=== PATIENT | male | born 1950 | race Caucasian/White ===

== ENCOUNTER 2020-04-09 17:53 | Inpatient (IN) | payer OTHER ==
[~2020-04-09] VITALS: Ht 167.6 cm; Wt 77.4 kg
[~2020-04-09 17:53] MED LIST: DEXT15ER; FAMO20
[2020-04-09 18:23] LABS: BASOPHILS PERCENT AUTO 2 % (0-2); EOSINOPHILS PERCENT AUTO 2 % (0-6); Hematocrit 27.6 % (37.0-53.0); Hemoglobin 8.6 g/dL (13.5-17.5); IMMATURE GRAN ABSOLUTE AUTO 0.03 K/mm3 (0.00-0.10); IMMATURE GRAN PERCENT AUTO 1 % (0-1); LYMPHOCYTES ABSOLUTE AUTO 1.53 K/mm3 (0.84-5.20); LYMPHOCYTES PERCENT AUTO 31 % (21-46); MONOCYTES ABSOLUTE AUTO 0.23 K/mm3 (0.16-1.47); MONOCYTES PERCENT AUTO 5 % (4-13); Mean Corpuscular HGB 34.5 pg (26.0-34.0); Mean Corpuscular HGB Conc 31.2 g/dL (31.5-36.5); Mean Corpuscular Volume 111 fL (80-100); Mean Platelet Volume 11.1 fL (9.1-12.4); NEUTROPHILS ABSOLUTE AUTO 2.91 K/mm3 (1.96-9.15); NEUTROPHILS PERCENT AUTO 60 % (41-73); NRBC ABSOLUTE 0.02 K/mm3 (0.00-0.02); NRBC Auto 0.4 /100 WBC (0.0-0.2); Platelet Count 215 K/mm3 (150-400); RDW Coefficient Variation 19.5 % (11.7-14.2); RDW Standard Deviation 79.2 fL (35.1-46.3); Red Blood Cell Count 2.49 M/mm3 (4.30-5.90)
[2020-04-09 18:41] LABS: Alanine Aminotransfer (ALT/SGP 19 U/L (12-78); Albumin, Blood 3.3 g/dL (3.4-5.0); Albumin/Globulin Ratio 0.8 (0.8-1.8); Alk Phos 72 U/L (50-136); Anion Gap 8 mmol/L (6-16); Aspartate Aminotrans (AST/SGOT 19 U/L (12-37); Bilirubin, Total 0.7 mg/dL (0.1-1.0); Blood Urea Nitrogen 13 mg/dL (8-24); Bun/Creatinine Ratio 12.9 (12.0-20.0); CO2, Blood 24 mmol/L (21-32); Calcium, Blood 8.7 mg/dL (8.5-10.1); Chloride, Blood 104 mmol/L (98-108); Creatinine, Blood 1.01 mg/dL (0.60-1.20); Globulin, Blood 4.1 g/dL (2.2-4.0); Glomerular Filtration Rate >60 (60-); Glucose, Blood 130 mg/dL (70-99); Potassium, Blood 3.9 mmol/L (3.5-5.5); Sodium, Blood 136 mmol/L (136-145); Total Protein, Blood 7.4 g/dL (6.4-8.2); Troponin I <0.015 ng/mL (0.000-0.040)
[2020-04-09] MEDS ORDERED: NITROGLYCERIN0.4 M3 SL (19:34)
[2020-04-09] MEDS ORDERED: PSEUDOEPHEDRINE30 M3 PO (19:36)
[2020-04-09] MEDS ORDERED: DEPO-TESTO200 MG/12 IM (19:36)
[2020-04-09] MEDS ORDERED: ROSUVASTATIN CA20 MG PO (19:36)
[2020-04-09] MEDS ORDERED: ESCI10 PO (19:36)
[2020-04-09] MEDS ORDERED: ISOSORBIDE MONO60 MG PO (19:37)
[2020-04-09] MEDS ORDERED: METOPROLOL TART25 MG PO (19:38)
[2020-04-09] MEDS ORDERED: OMEP20ER PO (20:13)
[2020-04-09] MEDS ORDERED: ASPIR 8181 M1 PO (20:13)
[2020-04-09 22:27] LABS: Percent Saturation 71.4 % (20.0-50.0)
--- NOTE | 2020-04-10 00:02 | NUR ---
RECIEVED REPORT FROM NOA FROM ED. PT TO TRANSFER IN ROOM 14.
--- NOTE | 2020-04-10 03:27 | NUR ---
PT REPORTS CHEST PAIN AT 0323 RADIATING TO LEFT SIDE ARM WITH SOME NUMBNESS DENIES TINGLING SENSATION. PT DESCRIBES PAIN "FEELS LIKE SOMETHING'S PUSHING MY CHEST". PAIN LEVEL 5/10. PT DENIES N/T ON FACE, NO NOTED DROOPING FACE. NITRO SIBLINGUAL WAS GIVEN. PT REPORTS RELIEF AFTER APROX 4 MINS. VSS. BP AT 127/78 ON L ARM. O2 SAT AT 97% WITH HEART RATE OF 86. CALLED PRESS WORKER HELPERANDREW, PT ON TELE, SINUS RHYTHM AT 86. NOTIFIED HOT DIE PRESS OPERATORMACY.
--- NOTE | 2020-04-10 04:41 | NUR ---
SHIFT SUMMARY PT A0X4. VSS. TELE ON SINUS RHYTHM AT 80'S. NO ACUTE CHANGES. PT REPORTS CHEST PAIN HAS IMPROVED. CURRENTLY COMFORTABLE SLEEPING IN BED. PT DENIES SOB. URINE OUTPUT OF 200MLS T/O SHIFT. DENIES PROBLEMS VOIDING. CALL LIGHT WITHIN REACH.
--- NOTE | 2020-04-10 05:56 | NUR ---
PT REPORTS CHEST PAIN RADIATING ON LEFT SIDE ARM. AGAIN. 08/28. ADMINISTERED NITRO SUBLINGUAL. HE REPORTS MILD IMPROVEMENT WITH HIS PAIN. VSS. CALLED TWITCHELL OPERATOR, PT ON SINUS RHYTHM AT 87.
--- NOTE | 2020-04-10 11:56 | NUR ---
ALL PATIENTS SCHEDULED MORNING MEDICATIONS ADMINISTERED PER EMAR ON 04/10/20 @ APPROX 0830. THE COMPUTER IN PATIENTS ROOM FROZE AND WOULD NOT ALLOW FOR ME TO DOCUMENT IN EMAR.
[2020-04-10 12:04] LABS: International Normalized Ratio 1.05; Prothrombin Time Results 11.2 Sec (9.7-11.5)
[2020-04-10 12:30] LABS: Influenza A, PCR NEGATIVE (NEGATIVE); Influenza B, PCR NEGATIVE (NEGATIVE); Resp Syncytial Virus, PCR NEGATIVE (NEGATIVE); SARS-Cov-2 (COVID-19) PCR, MMC NEGATIVE (NEGATIVE)
--- NOTE | 2020-04-10 12:53 | NUR ---
ECHOCARDIOGRAM COMPLETE
--- NOTE | 2020-04-10 16:37 | NUR ---
PATIENT IS PLEASANT AND COOPERATIVE WITH STAFF. VITALS STABLE. C/O CHEST PAIN ONCE AT THE START OF THE SHIFT WITH EFFECTIVE RESULTS FROM NITRO. PATIENT STARTED ON HEP DRIP R/T CHEST PAIN AND ELEVATED TROPS. CARDIALOGY CONSULT COMPLETED BY DR CAMARILLO WHO STATES HE PLANS TO ADJUST THE PATIENTS MEDS HOWEVER HAS NO PLANS TO PERFORM ANY PROCEEDURES ON PATIENT AT THIS TIME. PATIENT WITHOUT ANY FURTHER COMPLAINTS OF PAIN OR DISCOMFORT. CALL LIGHT WITHIN REACH.
[2020-04-11 04:47] LABS: Mean Corpuscular HGB 34.9 pg (26.0-34.0); Mean Corpuscular Volume 109 fL (80-100); Mean Platelet Volume 11.7 fL (9.1-12.4); Platelet Count 169 K/mm3 (150-400); RDW Coefficient Variation 19.8 % (11.7-14.2); RDW Standard Deviation 77.9 fL (35.1-46.3); Red Blood Cell Count 2.29 M/mm3 (4.30-5.90); White Blood Cell Count 6.18 K/mm3 (4.00-11.30)
[2020-04-11 05:17] LABS: Phosphorus, Blood 3.5 mg/dL (2.5-4.9); Thyroid Stimulating Hormone 3.71 uIU/mL (0.360-4.800)
--- NOTE | 2020-04-11 05:33 | NUR ---
SHIFT SUMMARY PT ALERT AND ORIENTED X 4. HR STABLE. BP STABLE. OXYGEN SATURATION MAINTAINED ABOVE 92% ON RA. PT ABLE TO TURN SELF IN BED, ASSISTED NEEDED. NO CP OR PRESSURE REPORTED T/O SHIFT. WILL CONTINUE TO MONITOR UNTIL REPORT GIVEN TO DAYSHIFT RN.
[2020-04-11] MEDS ORDERED: METO50ER PO (09:40)
[2020-04-11] MEDS ORDERED: ATOR80 PO (09:41)
[2020-04-11] MEDS ORDERED: CLOP75 PO (09:42)
[2020-04-11] MEDS ORDERED: LOSA25 PO (09:43)
--- NOTE | 2020-04-11 10:45 | NUR ---
TELE BOX, IV AND CONTINUOUS BIOX REMOVED FROM PATIENT IN PREP FOR DISCHARGE HOME. TELE BOX RETURNED TO TELE MONITOR.
--- NOTE | 2020-04-11 11:24 | NUR ---
DISCHARGE INSTRUCTIONS GIVEN TO PATIENT AND ALONG WITH EDUCATIONAL MATERIAL. ALL QUESTIONS ANSWERED. PRESCRIPTIONS FAXED TO [facility] PER PATIENT REQUEST. PATIENT DISCHARGED HOME AT 1125 WITH . CLINICAL PHLEBOTOMIST ESCORTED PATIENT OUT TO VEHICLE IN WHEELCHAIR.
== END 2020-04-11 11:27 | disposition home or self-care (01) | DRG 303 ==
LOC: ER 17:53 → PCU 17:54 → ERHOLD 17:54 → PCU 04-10 00:10
PROVIDERS: Emergency Medicine; Family Medicine; ADMIT Internal Medicine
DX: I25.10 Atherosclerotic heart disease of native coronary artery without angina pectoris (principal); Q74.3 Arthrogryposis multiplex congenita; I25.5 Ischemic cardiomyopathy; D64.9 Anemia, unspecified; E78.5 Hyperlipidemia, unspecified; I11.0 Hypertensive heart disease with heart failure; I50.9 Heart failure, unspecified
CPT/HCPCS: 0241U; 36415; 71045; 80053; 82728; 83540; 83550; 83690; 83735; 84100; 84443; 84484; 85025; 85027; 85610; 85730; 93005; 93010; 93306; 96372; 99285-25; A9270; G0008; G0378; J1644; J1650; Q2038

== ENCOUNTER 2020-04-19 18:33 | Inpatient (IN) | payer OTHER, MEDICARE ==
[~2020-04-19] VITALS: Ht 167.6 cm; Wt 78.5 kg
[~2020-04-19 18:33] MED LIST changes: +ASPIR 8181 M1 PO; +ATOR80 PO; +CLOP75 PO; +DEPO-TESTO200 MG/12 IM; +ESCI10 PO; +ISOSORBIDE MONO60 MG PO; +LOSA25 PO; +METO50ER PO; +METOPROLOL TART25 MG PO; +NITROGLYCERIN0.4 M3 SL; +OMEP20ER PO; +PSEUDOEPHEDRINE30 M3 PO; +ROSUVASTATIN CA20 MG PO
[2020-04-19 19:17] LABS: Hematocrit 27.8 % (37.0-53.0); Hemoglobin 8.8 g/dL (13.5-17.5); Mean Corpuscular HGB 35.8 pg (26.0-34.0); Mean Corpuscular HGB Conc 31.7 g/dL (31.5-36.5); Mean Corpuscular Volume 113 fL (80-100); Platelet Count 252 K/mm3 (150-400); RDW Coefficient Variation 20.2 % (11.7-14.2); RDW Standard Deviation 83.4 fL (35.1-46.3); Red Blood Cell Count 2.46 M/mm3 (4.30-5.90); White Blood Cell Count 5.67 K/mm3 (4.00-11.30)
[2020-04-19 19:42] LABS: Alanine Aminotransfer (ALT/SGP 18 U/L (12-78); Albumin, Blood 3.2 g/dL (3.4-5.0); Albumin/Globulin Ratio 0.8 (0.8-1.8); Alk Phos 66 U/L (50-136); Anion Gap 10 mmol/L (6-16); Aspartate Aminotrans (AST/SGOT 19 U/L (12-37); Bilirubin, Total 0.5 mg/dL (0.1-1.0); Blood Urea Nitrogen 16 mg/dL (8-24); CHOL/HDL RATIO 2.8; CO2, Blood 21 mmol/L (21-32); Calcium, Blood 8.7 mg/dL (8.5-10.1); Chloride, Blood 103 mmol/L (98-108); Cholesterol 80 mg/dL (50-200); Glucose, Blood 99 mg/dL (70-99); HDL Cholesterol 29 mg/dL (>39); Low Density Lipoprotein Chol 28 mg/dL (0-110); Magnesium, Blood 1.9 mg/dL (1.6-2.4); Potassium, Blood 3.8 mmol/L (3.5-5.5); Sodium, Blood 134 mmol/L (136-145); Total Protein, Blood 7.2 g/dL (6.4-8.2); Triglycerides 113 mg/dL (30-160); Troponin I <0.015 ng/mL (0.000-0.040); Very Low Density Lipoprot Chol 22 mg/dL (6-32)
[2020-04-19 19:47] LABS: Bun/Creatinine Ratio 14.2 (12.0-20.0); Creatinine, Blood 1.13 mg/dL (0.60-1.20); Ethanol (Alcohol), Blood, Med 219 mg/dL; Glomerular Filtration Rate >60 (60-)
[2020-04-19 19:50] LABS: International Normalized Ratio 1.02; Prothrombin Time Results 10.9 Sec (9.7-11.5)
[2020-04-19 20:05] LABS: Source, Urine Clean Catch
[2020-04-19 20:13] LABS: Appearance, Urine Hazy (Clear); Bilirubin, Urine Neg (Neg); Blood, Urine 3+ (Neg); Color, Urine Yellow (P-Yellow); Glucose Qualitative, Urine Neg (Neg); Ketones, Urine Neg (Neg); Leukocyte Esterase, Urine 3+ (Neg); Nitrite, Urine Neg (Neg); Protein, Urine 2+ (Neg); Urobilinogen, Urine NORM (Normal)
[2020-04-19 20:20] LABS: Bacteria Many /hpf; Squamous Epithelial Cells Few /hpf (Few); White Blood Cells, Urine 50-100 /hpf (0-5)
[2020-04-19 20:23] LABS: U Amphetamine Screen Not Detected; U Barbituate Screen Not Detected; U Benzodiazapine Screen Not Detected; U Buprenorphine Screen Not Detected; U Cannabinoids Screen DETECTED; U Cocaine Screen Not Detected; U Methadone Screen Not Detected; U Methamphetamine Screen Not Detected; U Opiates Screen Not Detected; U Oxycodone Screen Not Detected; U Phencyclidine Screen Not Detected; U Propoxyphene Screen Not Detected
[2020-04-19 23:15] LABS: Influenza A, PCR NEGATIVE (NEGATIVE); Influenza B, PCR NEGATIVE (NEGATIVE); Resp Syncytial Virus, PCR NEGATIVE (NEGATIVE); SARS-Cov-2 (COVID-19) PCR, MMC NEGATIVE (NEGATIVE)
[2020-04-20 02:12] LABS: BASOPHILS ABSOLUTE AUTO 0.11 K/mm3 (0.00-0.23); BASOPHILS PERCENT AUTO 3 % (0-2); EOSINOPHILS ABSOLUTE AUTO 0.06 K/mm3 (0.00-0.68); EOSINOPHILS PERCENT AUTO 1 % (0-6); Hematocrit 24.3 % (37.0-53.0); Hemoglobin 7.8 g/dL (13.5-17.5); IMMATURE GRAN ABSOLUTE AUTO 0.01 K/mm3 (0.00-0.10); IMMATURE GRAN PERCENT AUTO 0 % (0-1); LYMPHOCYTES ABSOLUTE AUTO 1.82 K/mm3 (0.84-5.20); LYMPHOCYTES PERCENT AUTO 42 % (21-46); MONOCYTES ABSOLUTE AUTO 0.27 K/mm3 (0.16-1.47); MONOCYTES PERCENT AUTO 6 % (4-13); Mean Corpuscular HGB 35.3 pg (26.0-34.0); Mean Corpuscular HGB Conc 32.1 g/dL (31.5-36.5); Mean Corpuscular Volume 110 fL (80-100); Mean Platelet Volume 11.7 fL (9.1-12.4); NEUTROPHILS ABSOLUTE AUTO 2.08 K/mm3 (1.96-9.15); NEUTROPHILS PERCENT AUTO 48 % (41-73); Platelet Count 204 K/mm3 (150-400); RDW Coefficient Variation 19.8 % (11.7-14.2); RDW Standard Deviation 78.2 fL (35.1-46.3); Red Blood Cell Count 2.21 M/mm3 (4.30-5.90); White Blood Cell Count 4.35 K/mm3 (4.00-11.30)
[2020-04-20 02:31] LABS: Anion Gap 6 mmol/L (6-16); Blood Urea Nitrogen 12 mg/dL (8-24); Bun/Creatinine Ratio 12.6 (12.0-20.0); CO2, Blood 26 mmol/L (21-32); Calcium, Blood 8.3 mg/dL (8.5-10.1); Chloride, Blood 104 mmol/L (98-108); Creatinine, Blood 0.95 mg/dL (0.60-1.20); Glomerular Filtration Rate >60 (60-); Glucose, Blood 95 mg/dL (70-99); Potassium, Blood 4.3 mmol/L (3.5-5.5); Sodium, Blood 136 mmol/L (136-145); Troponin I 0.277 ng/mL (0.000-0.040)
--- NOTE | 2020-04-20 06:09 | NUR ---
SHIFT SUMMARY PATIENT SLEPT WELL THROUGH NIGHT. NO COMPLAINTS OF PAIN. DID NOT SOME DESTURATION JUST RECENTLY WHILE DEEPLY ASLEEP, DOWN TO LOW OF 55% THEN BACK UP WITHIN LESS THAN 20 SECONDS, NO LONGER NOTICING AFTER WAKING PATIENT UP FOR EKG. PRINT-OUT OF EKG PLACED IN CHART. ASSESSMENT IS CHARTED. VSS. WILL CONTINUE TO MONITOR.
--- NOTE | 2020-04-20 18:11 | NUR ---
SHIFT SUMMARY PT ATE BREAKFAST AND DR. LU CAME IN AND SAID THERE WAS A NPO ORDER IN BECAUSE HE WAS HAVING A CATH TODAY. NPO ORDER WEAS NOT IN SO PT ATE. PT TO HAVE CATH AT 2PM TODAY. PT WAS TAKEN TO HOME COMFORT ADVISOR AND BROUGHT BACK DUE TO EMERGENCY STEMI. 2 MG ATIVAN GIVEN FOR CIWA AT 1345 OF 16. THINK IT WAS NERVES AND NOT W/D. PT CAME BACK SLEEPY FROM THE ATIVAN AND VALUUM THAT WAS GIVEN. STILL WAITING FOR HOME COMFORT ADVISOR TO TAKE THE PT BACK FOR PROCEDURE. WAS HERE, BUT WENT HOME AT 6 PM.
--- NOTE | 2020-04-20 19:25 | NUR ---
ASSUMED CARE RECEIVED REPORT FROM PADMINI ESPINOSA; PT IS IN DOUGH MAKER CURRENTLY; REVIEWED CHART W/ JESÚS
--- NOTE | 2020-04-20 20:08 | NUR ---
PT BACK TO ROOM FROM DIE REPAIRER TRIMMER DIES; NO INTERVENTION AT THIS TIME DUE TO SMALL VESSELS; DISCUSSION W/ PT AND SPOUSE TO TAKE PLACE TOMORROW; FEMORAL ACCESS TO R SIDE, SMALL AMOUNT OF BLOOD NOTED; PT A&O X 4; VSS; O2 SATS >93 ON RA ON R SIDE GREAT TOE; CALL LIGHT IN REACH; BED IN LOWEST POSITION.
--- NOTE | 2020-04-20 21:00 | NUR ---
UPDATE TO SEE PT; STATED HE WOULD NOT RESTART HEP GTT; WHEN SPOUSE COMES AT 1400 TO CALL , HE WILL COME MEET W/ PT AND SPOUSE TO GO OVER COURSE OF [place]
--- NOTE | 2020-04-21 05:19 | NUR ---
SHIFT SUMMARY PT A&O X 2-3; CONFUSED AT TIMES; REORIENTED NEEDED; PT REMEMBERED QUICKLY WHEN DETAILS PROVIDED; DENIES CHEST PAIN; VSS; O2 SATS >93 ON RA WHEN FULLY AWAKE, HOWEVER PT DESATS WHEN SLEEPING SOUNDLY AND SNORING; PLACED ON 2L NC TO MAINTAIN SATS; PT STATED THAT TELLS HIM HE STOPS BREATHING DURING THE NIGHT AT HOME; PT STATES HE DOES NOT USE CPAP OR O2 AT BASELINE; R FEMORAL SITE, W/ SCANT DRIED BLOOD; ANGIO SEAL IN PLACE; PT USES URINAL IN BED; CALL LIGHT IN REACH; BED IN LOWEST POSITION; WILL CONTINUE TO MONITOR CLOSELY UNTIL HAND OFF TO DAY SHIFT RN.
--- NOTE | 2020-04-21 08:00 | NUR ---
INITIAL ASSESSMENT PATIENT DROWSY THIS AM. PATIENT ABLE TO ANSWER QUESTIONS BUT HAS A HARD TIME KEEPING EYES OPEN AFTER EVERY QUESTION. PATIENT IS ALERT AND ORIENTED X 4. AFEBRILE. CIWA SCORE OF 2. PATIENT WEAK WITH LIMITED ROM DUE TO CONTRACTIONS FROM DEGENERATIVE MUSCLE DISEASE. PATIENT DENIES PAIN AT THIS TIME. PATIENT SATTING 90% AND GREATER ON RA. PATIENT IN SR, HR 60S TO 80S. SBP LOW 100S TO 120S. LAST BM DOCUMENTED ON 04/18. WNL. R FEM AUTO PAINTER SITE WITH ANGIOSEAL AND TEGADERM. SITE C/D/I; NO BLEEDING, BRUISING, HEMATOMA NOTED. IVS FLUSHED AND SALINE LOCKED. BED LOW, CALL LIGHT IN REACH. WILL CONTINUE TO MONITOR PATIENT FREQUENTLY THROUGHOUT SHIFT.
--- NOTE | 2020-04-21 12:37 | NUR ---
PATIENT HAS TEMP OF 99.0 DEGREES FAHRENHEIT. HR 60S T0 70S. SBP 90S TO LOW 100S. NO COMPLAINTS AT THIS TIME. NO OTHER ACUTE CHANGES TO NOTE ON. WILL CONTINUE TO MONITOR.
--- NOTE | 2020-04-21 15:00 | NUR ---
DR. ROSENBERG UPDATED ON PATIENT CONDITION. DOCTOR INFORMED THAT PATIENT MAY HAVE UTI. INFORMED THAT HEMOGLOBIN 7.8 AND IS DECREASED FROM YESTERDAY. INFORMED THAT PATIENT HAS NOT HAD A BM SINCE THE March. DR. ROSENBERG AND DR. LU SPEAKING ABOUT PATIENT. NO ORDERS RECEIVED AT THIS TIME.
[2020-04-21 15:53] LABS: Hematocrit 26.2 % (37.0-53.0); Hemoglobin 8.4 g/dL (13.5-17.5)
--- NOTE | 2020-04-21 19:15 | NUR ---
SHIFT SUMMARY PATIENT REMAINED ALERT AND ORIENTED X 4. PATIENT DROWSY THIS AM BUT SOON BECAME MORE AWAKE AND ALERT. CIWA MAX OF 2. TMAX OF 99.1 DEGREES FAHRENHEIT. PATIENT HAD NO COMPLAINTS OF PAIN THIS SHIFT. PATIENT REMAINED SATTING 90% AND GREATER ON RA. PATIENT REMAINED IN SR, HR 60S TO 80S. SBP 80S TO 120S. NO BM THIS SHIFT. WNL. NO CHANGE IN SKIN. R FEM SITE REMAINED WNL. PATIENT BEING TRANSFERRED TO [place] FOR CABG. REPORT GIVEN TO ASSUMING NURSE IN [place]. MOST PATIENT BELONGINGS SENT HOME WITH PATIENT . PATIENT'S CALLED AND UPDATED ON ROOM PATIENT IS GOING TO.
== END 2020-04-21 19:40 | disposition short-term general hospital (02) | DRG 281 ==
LOC: ER 18:33 → ICUE 18:34 → ERHOLD 18:34 → ICUE 21:20
PROVIDERS: Emergency Medicine; Internal Medicine; Nurse Practitioner Acute Care; ADMIT Internal Medicine
PROC: B2111ZZ Fluoroscopy of Multiple Coronary Arteries using Low Osmolar Contrast (ICD-10-PCS; principal; 2020-04-20)
PROC: B2151ZZ Fluoroscopy of Left Heart using Low Osmolar Contrast (ICD-10-PCS; 2020-04-20)
PROC: 4A023N7 Measurement of Cardiac Sampling and Pressure, Left Heart, Percutaneous Approach (ICD-10-PCS; 2020-04-20)
DX: I21.4 Non-ST elevation (NSTEMI) myocardial infarction (principal); Q74.3 Arthrogryposis multiplex congenita; I25.110 Atherosclerotic heart disease of native coronary artery with unstable angina pectoris; I10 Essential (primary) hypertension; Z79.82 Long term (current) use of aspirin; Z79.01 Long term (current) use of anticoagulants; F10.10 Alcohol abuse, uncomplicated; I95.9 Hypotension, unspecified; D53.9 Nutritional anemia, unspecified; Y90.0 Blood alcohol level of less than 20 mg/100 ml
CPT/HCPCS: 0241U; 36415; 71045; 76937; 80048; 80053; 80061; 81001; 82607; 82746; 83735; 83880; 84100; 84484; 85014; 85018; 85025; 85027; 85610; 85730; 86850; 86900; 86901; 87077; 87086; 87186; 93005; 93010; 93308; 93321; 93458; 96365; 96374; 96375; 96376; 99152; 99285-25; A9270; C1760; C1769; C1894; G0378; G0480; J1644; J2060; J2250; J3010; J3475; J7030; J7050; Q9967

== ENCOUNTER 2020-11-10 19:29 | Inpatient (IN) | payer OTHER ==
[~2020-11-10] VITALS: Ht 167.6 cm; Wt 75.0 kg
[2020-11-10 20:14] LABS: BASOPHILS ABSOLUTE AUTO 0.02 K/mm3 (0.00-0.23); BASOPHILS PERCENT AUTO 0 % (0-2); EOSINOPHILS ABSOLUTE AUTO 0.06 K/mm3 (0.00-0.68); EOSINOPHILS PERCENT AUTO 1 % (0-6); IMMATURE GRAN ABSOLUTE AUTO 0.14 K/mm3 (0.00-0.10); IMMATURE GRAN PERCENT AUTO 1 % (0-1); LYMPHOCYTES ABSOLUTE AUTO 0.85 K/mm3 (0.84-5.20); LYMPHOCYTES PERCENT AUTO 8 % (21-46); MONOCYTES ABSOLUTE AUTO 1.02 K/mm3 (0.16-1.47); MONOCYTES PERCENT AUTO 10 % (4-13); Mean Corpuscular HGB 40.9 pg (26.0-34.0); Mean Corpuscular HGB Conc 29.5 g/dL (31.5-36.5); Mean Corpuscular Volume 139 fL (80-100); NEUTROPHILS ABSOLUTE AUTO 8.46 K/mm3 (1.96-9.15); NEUTROPHILS PERCENT AUTO 80 % (41-73); NRBC ABSOLUTE 0.09 K/mm3 (0.00-0.02); NRBC Auto 0.9 /100 WBC (0.0-0.2); RDW Coefficient Variation 23.8 % (11.7-14.2); Red Blood Cell Count 0.88 M/mm3 (4.30-5.90); White Blood Cell Count 10.55 K/mm3 (4.00-11.30)
[2020-11-10 20:17] LABS: Mean Platelet Volume 13.7 fL (9.1-12.4); Platelet Count 251 K/mm3 (150-400)
[2020-11-10 20:18] LABS: Hematocrit 12.2 % (37.0-53.0); Hemoglobin 3.6 g/dL (13.5-17.5)
[2020-11-10] MEDS ORDERED: ROSUVASTATIN CA20 MG PO (20:29)
[2020-11-10] MEDS ORDERED: METOPROLOL TART25 MG PO (20:29)
[2020-11-10] MEDS ORDERED: TRAZ50 PO (20:29)
[2020-11-10 20:33] LABS: Alanine Aminotransfer (ALT/SGP 910 U/L (12-78); Albumin, Blood 2.8 g/dL (3.4-5.0); Albumin/Globulin Ratio 0.6 (0.8-1.8); Alk Phos 183 U/L (50-136); Anion Gap 19 mmol/L (6-16); Aspartate Aminotrans (AST/SGOT 1354 U/L (12-37); Bilirubin, Total 4.3 mg/dL (0.1-1.0); Blood Urea Nitrogen 41 mg/dL (8-24); Bun/Creatinine Ratio 29.3 (12.0-20.0); CO2, Blood 13 mmol/L (21-32); Calcium, Blood 8.4 mg/dL (8.5-10.1); Chloride, Blood 102 mmol/L (98-108); Globulin, Blood 4.4 g/dL (2.2-4.0); Glomerular Filtration Rate 50 (60-); Glucose, Blood 91 mg/dL (70-99); Sodium, Blood 134 mmol/L (136-145); Total Protein, Blood 7.2 g/dL (6.4-8.2); Troponin I 0.028 ng/mL (0.000-0.040)
[2020-11-10 20:45] LABS: International Normalized Ratio 1.9; Prothrombin Time Results 19.8 Sec (9.7-11.5)
[2020-11-10] MEDS ORDERED: OMEP20ER PO (21:38)
[2020-11-10] MEDS ORDERED: PANTOPRAZOLE SO40 M2 PO (21:39)
[2020-11-10 21:45] LABS: Percent Saturation 77.9 % (20.0-50.0)
--- NOTE | 2020-11-11 | NUR ---
RECEIVED HAND OFF FROM Alban DAVIDSON RN USING SBAR. TRANSPORTED TO ROOM PCU13 VIA STRETCHER. TRANSFERED TO BED USING FULL STAFF ASSISTANCE, TOLERATED WELL. AAO X3, SOME MOVEMENT TO ALL EXREMETIES WITH STIFFNESS AND CONTRACTURES NOTED. 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 PT STATES THAT LESS THAN 6 MONTHS AGO HE WAS SELF CARE AND IS CONCERNED ABOUT BECOMING A BURDEN TO HIS SPOUSE. UA AND COVID SWAB TO BE DONE. RESPIRTATIONS EVEN AND UNLABORED ON ROOM IAR. LUNG SOUNDS CLEAR BILATERALLY. ABDOMEN FIRM WITH ACTIVE BOWEL TONES NOTED IN ALL QUADS. RIGHT AC PIV IS PATENT, INFUSING UNIT 1 OF 3 PRBC'S ORDERED. CONTINENT OF BOWEL AND BLADDER, WEARS OWN UNDERWEAR. DENIES NEEDS FOR ATTENDS AT THIS TIME. ADMISSION ASSESSEMENT IN PROGRESS. SAFETY MEASURES IN PLACE. WILL CONTINUE TO MONITOR AND ADDRESS NEEDS THEY OCCURE.
[2020-11-11 01:28] LABS: Hematocrit 14.9 % (37.0-53.0); Hemoglobin 4.6 g/dL (13.5-17.5)
[2020-11-11 01:29] LABS: Source, Urine Clean Catch
[2020-11-11 01:35] LABS: Blood, Urine 5+ (Neg); Glucose Qualitative, Urine Neg (Neg); Ketones, Urine 2+ (Neg); Leukocyte Esterase, Urine 3+ (Neg); Nitrite, Urine Neg (Neg); Protein, Urine 3+ (Neg); Urobilinogen, Urine 3+ (Normal)
[2020-11-11 01:48] LABS: Appearance, Urine Hazy (Clear); Bilirubin, Urine 1+ (Neg); Color, Urine Yellow (P-Yellow)
[2020-11-11 01:50] LABS: Bacteria Many /hpf; Red Blood Cells, Urine Rare /hpf (0-2); Squamous Epithelial Cells Rare /hpf (Few); White Blood Cells, Urine TNTC /hpf (0-5)
[2020-11-11 01:51] LABS: SARS-Cov-2 (COVID-19) PCR, MMC NEGATIVE (NEGATIVE)
--- NOTE | 2020-11-11 03:00 | NUR ---
STATED THAT HE HAS BEEN HAVING ISSUES WITH SWALLOWING PILLS AND FOOD. SWALLOW EVAL MAY BE NEEDED. CURRENTY ON CLEAR LIQUID DIET. WILL CONTINUE TO MONITOR AND ADDRESS CHANGES THEY OCCUR.
--- NOTE | 2020-11-11 03:16 | NUR ---
UNIT 2 OF 3 PRBC'S STARTED. VS PER FLOW SHEET. TOLERATED FIRST 15 MIN WITHOUT ISSUES OR S/S ADVERSE REACTIONS. FIRST UNIT STARTED IN ER AND CHARTED ON PAPER FLOW SHEET IN CHART. WILL CONTINUE TO MONITOR AND ADDRESS NEEDS THEY ARISE.
--- NOTE | 2020-11-11 06:26 | NUR ---
LYING IN SEMI FOWLERS WITH EYES CLOSED. WILL OCCASIONALLY MOAN AND SHIFT HIS WEIGHT. UNIT 3 OF 3 PRBC'S INFUSING AT THIS TIME, BEDSIDE MONITORING IN PLACE. VITAL SIGNS STABLE AND IMPROVING. HAD C/O CARDONA EARLIER, GIVEN COOL WASHCLOTH TO PLACE ON HIS HEAD. CONTINENT OF BOWEL AND BLADDER, USES URINAL. ADEQUATE OUTPUT SINCE ADMISSION. NEGATIVE RESULTS NOTED FROM COVID SWAB. UA COMPLETED PER MD ORDERS. DENIES PAIN, DISCOMFORT, OR FURTHER NEEDS AT THIS TIME. SAFETY MEASURES IN PLACE. WILL CONTINUE TO MONITOR AND ADDRESS NEEDS THEY ARISE. WILL GIV HAND OFF TO ONCOMING SHIFT USING SBAR DURING BEDSIDE REPORT.
[2020-11-11 09:49] LABS: BASOPHILS ABSOLUTE AUTO 0.05 K/mm3 (0.00-0.23); BASOPHILS PERCENT AUTO 1 % (0-2); EOSINOPHILS ABSOLUTE AUTO 0.03 K/mm3 (0.00-0.68); EOSINOPHILS PERCENT AUTO 0 % (0-6); Hematocrit 21.2 % (37.0-53.0); IMMATURE GRAN ABSOLUTE AUTO 0.12 K/mm3 (0.00-0.10); IMMATURE GRAN PERCENT AUTO 1 % (0-1); LYMPHOCYTES ABSOLUTE AUTO 0.81 K/mm3 (0.84-5.20); LYMPHOCYTES PERCENT AUTO 8 % (21-46); MONOCYTES ABSOLUTE AUTO 0.44 K/mm3 (0.16-1.47); MONOCYTES PERCENT AUTO 5 % (4-13); Mean Corpuscular HGB 33.2 pg (26.0-34.0); Mean Platelet Volume 12.8 fL (9.1-12.4); NEUTROPHILS PERCENT AUTO 85 % (41-73); NRBC ABSOLUTE 0.04 K/mm3 (0.00-0.02); NRBC Auto 0.4 /100 WBC (0.0-0.2); Platelet Count 190 K/mm3 (150-400); RDW Coefficient Variation 26.6 % (11.7-14.2); Red Blood Cell Count 2.11 M/mm3 (4.30-5.90); White Blood Cell Count 9.75 K/mm3 (4.00-11.30)
[2020-11-11 09:55] LABS: Mean Corpuscular Volume 101 fL (80-100)
[2020-11-11 10:04] LABS: International Normalized Ratio 1.79; Prothrombin Time Results 18.7 Sec (9.7-11.5)
[2020-11-11 10:16] LABS: Albumin, Blood 2.7 g/dL (3.4-5.0); Albumin/Globulin Ratio 0.7 (0.8-1.8); Bilirubin, Total 8.9 mg/dL (0.1-1.0); Bun/Creatinine Ratio 30.7 (12.0-20.0); Calcium, Blood 8.2 mg/dL (8.5-10.1); Creatinine, Blood 1.27 mg/dL (0.60-1.20); Globulin, Blood 4.1 g/dL (2.2-4.0); Potassium, Blood 3.5 mmol/L (3.5-5.5); Total Protein, Blood 6.8 g/dL (6.4-8.2)
[2020-11-11 16:44] LABS: Hematocrit 20.7 % (37.0-53.0); Hemoglobin 6.9 g/dL (13.5-17.5)
--- NOTE | 2020-11-11 18:32 | NUR ---
SHIFT SUMMARY PT REMAINS ALERT AND ORIENTED. HAD A DECENT DAY. RECEIVED 3 UNITS OF PRBCS STARTING LAST NIGHT. H/H IMPROVED SOME. ORDERS TO TRANSFUSE AN ADDITIONAL UNIT TONIGHT/NOW. REPEAT LABS ORDERED FOR 2HRS POST INFUSION. PT WAS VERY DEPRESSED AND EMOTIONAL THIS AM. SEEMED DEFEATED AND CALLED HIMSELF NAMES. OFFERED SPIRITUAL CARE VISIT BUT PT DECLINED. PT HAS A 20G TO RIGHT AC, SITE WNL, DRESSING C/D/I (CHANGED TODAY). PT URINATES PER URINAL, CALLS FOR ASSISTANCE, DRIBBLES SOMETIMES AFTER VOIDING. URINE IS DARK YELLOW AND FOULS SMELLING. PT ABD SOFT AND NON TENDER. ONE EPISODE OF NAUSEA/VOMITING THIS AFTERNOON. NO BLOOD NOTED. PT ABLE TO MOVE ARMS BUT NEEDS HELP MANIPULATING THINGS AND EATING/DRINKING. DUE TO MUSCULOSKELETAL ISSUES PT HAS CONTRACTED MUSCLES. NO SIGNIFICANT CHANGES SINCE MORNING ASSESSMENT. PT GOT BEDBATH AND CHANGED INTO GOWN. SPIRITS BETTER THIS EVENING. WOULD REALLY BENEFIT FROM BEING ABLE TO BE AT BEDSIDE AND ASSIST WITH CARE. WILL REPORT TO ONCOMING SHIFT.
--- NOTE | 2020-11-11 22:16 | NUR ---
ONE UNIT PRBC ORDERED AND INFUSING. PATIENT TOLERATING WELL. WCTM
[2020-11-12 01:41] LABS: Hematocrit 23.2 % (37.0-53.0); Hemoglobin 7.9 g/dL (13.5-17.5)
[2020-11-12 01:59] LABS: Alanine Aminotransfer (ALT/SGP 776 U/L (12-78); Albumin, Blood 2.2 g/dL (3.4-5.0); Albumin/Globulin Ratio 0.5 (0.8-1.8); Alk Phos 166 U/L (50-136); Anion Gap 7 mmol/L (6-16); Aspartate Aminotrans (AST/SGOT 850 U/L (12-37); Bilirubin, Total 7.5 mg/dL (0.1-1.0); Blood Urea Nitrogen 34 mg/dL (8-24); Bun/Creatinine Ratio 28.6 (12.0-20.0); CO2, Blood 25 mmol/L (21-32); Calcium, Blood 7.9 mg/dL (8.5-10.1); Chloride, Blood 104 mmol/L (98-108); Creatinine, Blood 1.19 mg/dL (0.60-1.20); Globulin, Blood 4.3 g/dL (2.2-4.0); Glomerular Filtration Rate >60 (60-); Glucose, Blood 118 mg/dL (70-99); Potassium, Blood 3.5 mmol/L (3.5-5.5); Sodium, Blood 136 mmol/L (136-145); Total Protein, Blood 6.5 g/dL (6.4-8.2)
--- NOTE | 2020-11-12 04:30 | NUR ---
SHIFT SUMMARY PATIENT HAD NO ACUTE CHANGES OBSERVED. AXOX 4 AND BEDREST. RECEIVED ONE UNIT PRBC AND TOLERATED WELL. REPORTED CARDONA X ONE AND COLD WET WASH CLOTH PROVIDED. PIV REMAINS INTACT. IV ABX INFUSED. USES URINAL AT BEDSIDE WITH ASSIST. USES CALL LIGHT TO COMMUNICATE NEEDS. LUNG SOUNDS CLEAR BILATERALLY. RESPIRATIONS EVEN AND UNLABORED. ON ROOM AIR. ACTIVE BOWEL TONES X 4 QUADS. DENIES SOB AND N/V. CALL LIGHT IN REACH. BED IN LOWEST POSITION. WILL CONTINUE TO MONITOR UNTIL DAY SHIFT NURSE ASSUMES CARE.
--- NOTE | 2020-11-12 06:24 | NUR ---
PATIENT NAUSEOUS X ONE AND IV ZOFRAN GIVEN PER EMAR. SITTING IN BED. WCTM.
[2020-11-12 06:25] LABS: Hematocrit 22.4 % (37.0-53.0); Hemoglobin 7.6 g/dL (13.5-17.5)
[2020-11-12 10:09] LABS: HBSAG SCREEN Negative (Negative); HEP A AB, IGM Negative (Negative); HEP B CORE AB, IGM Negative (Negative); HEP C VIRUS AB <0.1 (0.0-0.9)
[2020-11-12 12:16] LABS: Hematocrit 23.2 % (37.0-53.0)
--- NOTE | 2020-11-12 12:42 | NUR ---
TRANSFER: PT A/O, VSS. REPORT GIVEN TO MED FLOOR RN AT ABOUT 1200, PT TRANSFERED AT ABOUT 1215 TO ROOM 337. PT MADE AWARE
--- NOTE | 2020-11-12 17:26 | NUR ---
SHIFT SUMMARY PT TRANSFERRED TO [facility] FROM PCU THIS SHIFT. RECEIVED REPORT FROM PADMINI DALE. PT AAOX4, ABLE TO MAKE NEEDS KNOWN, PLEASANT AND COOPERATIVE TO CARE. CALLS APPROPRIATELY FOR ASSISTANCE. PT MEDICATED FOR PAIN PER EMAR. NO C/O CP, SOB, OR N&V. PT REQUIRES 2P MAX ASSIST WITH BED MOBILITY AND DURING TRANSFERS. PT APPEARS CALM AND COMFORTABLE IN BED AT THIS TIME. BED AT LOWEST POSITION. CALL LIGHT WITHIN REACH.
--- NOTE | 2020-11-13 04:34 | NUR ---
END OF SHIFT SUMMARY PATIENT MAINTAINED STABLE VSS THROUGHT THE SHIFT, STILL HAS HEADACHE THAT HE GOT TRAMAL TWICE THIS SHIFT AND WITH GOOD EFFECT. OTHERWISE NO FRESH COMPLAINT
--- NOTE | 2020-11-13 18:57 | NUR ---
Shift Summary, The patient is A/OX4 to person, place, time and event. He is pleasent and cooperative with care. The patient is bed bound, he has decreased ROM in all extremities. The patient did have heel pain and heel protectores were applied and he stated that they helped. The patient did have pain and was given pain medication per EMAR. He is on RA and denies chest pain or SOB. He is able to feed himself. The patient is currently resting in bed watching TV.
--- NOTE | 2020-11-14 04:39 | NUR ---
SHIFT SUMMARY- NO ACUTE EVENTS OVERNIGHT. PT. HAD COMPLAINTS OF HEAD AND LONNY FOOT PAIN. MEDICATED PER EMAR WITH GOOD EFFECT. PT. APPEARED TO HAVE RESTED QUIETLY T/O THE NIGHT, NO APPARENT DISTRESS NOTED. CALL LIGHT WITHIN REACH AND SIDE RAILS UPX2. WILL CONT TO MONITOR.
[2020-11-14 09:00] LABS: Alanine Aminotransfer (ALT/SGP 449 U/L (12-78); Albumin/Globulin Ratio 0.5 (0.8-1.8); Alk Phos 162 U/L (50-136); Anion Gap 4 mmol/L (6-16); Aspartate Aminotrans (AST/SGOT 263 U/L (12-37); Bilirubin, Total 3.6 mg/dL (0.1-1.0); Blood Urea Nitrogen 20 mg/dL (8-24); Bun/Creatinine Ratio 20.4 (12.0-20.0); CO2, Blood 24 mmol/L (21-32); Calcium, Blood 7.6 mg/dL (8.5-10.1); Chloride, Blood 109 mmol/L (98-108); Creatinine, Blood 0.98 mg/dL (0.60-1.20); Globulin, Blood 4.3 g/dL (2.2-4.0); Glomerular Filtration Rate >60 (60-); Glucose, Blood 86 mg/dL (70-99); Potassium, Blood 3.9 mmol/L (3.5-5.5); Sodium, Blood 137 mmol/L (136-145); Total Protein, Blood 6.3 g/dL (6.4-8.2)
[2020-11-14 09:45] LABS: BASOPHILS ABSOLUTE AUTO 0.09 K/mm3 (0.00-0.23); BASOPHILS PERCENT AUTO 2 % (0-2); EOSINOPHILS ABSOLUTE AUTO 0.21 K/mm3 (0.00-0.68); EOSINOPHILS PERCENT AUTO 4 % (0-6); Hematocrit 26.1 % (37.0-53.0); Hemoglobin 8.4 g/dL (13.5-17.5); IMMATURE GRAN ABSOLUTE AUTO 0.06 K/mm3 (0.00-0.10); IMMATURE GRAN PERCENT AUTO 1 % (0-1); LYMPHOCYTES ABSOLUTE AUTO 0.66 K/mm3 (0.84-5.20); LYMPHOCYTES PERCENT AUTO 11 % (21-46); MONOCYTES PERCENT AUTO 5 % (4-13); Mean Corpuscular HGB 32.8 pg (26.0-34.0); Mean Corpuscular HGB Conc 32.2 g/dL (31.5-36.5); Mean Corpuscular Volume 102 fL (80-100); NEUTROPHILS ABSOLUTE AUTO 4.58 K/mm3 (1.96-9.15); NEUTROPHILS PERCENT AUTO 78 % (41-73); Platelet Count 175 K/mm3 (150-400); RDW Standard Deviation 84.3 fL (35.1-46.3); Red Blood Cell Count 2.56 M/mm3 (4.30-5.90)
--- NOTE | 2020-11-14 18:32 | NUR ---
PT IS IN BED,PT ASSESSMENT REMAINS UNCHANGED T/O THE SHIFT, NO ACUTES EVENTS,PT IN RESTING CONFORTABLY IN BED,BED LOCKED,CALL LIGHT IN REACH.WILL CONTINUE TO MONITOR.
--- NOTE | 2020-11-15 06:18 | NUR ---
SHIFT SUMMARY- NO ACUTE EVENTS OVERNIGHT. MEDICATED FOR BLADDER PAIN, REPORTED GOOD RELIEF. PT. SLEPT T/O THE NIGHT, NO APPARENT DISTRESS NOTED, VSS. CALL LIGHT WITHIN REACH AND SIDE RAILS UPX2. WILL CONT TO MONITOR.
[2020-11-15 15:03] LABS: SARS-Cov-2 (COVID-19) PCR, MMC NEGATIVE (NEGATIVE)
[2020-11-15] MEDS ORDERED: FOLI1 PO (15:48)
[2020-11-15] MEDS ORDERED: B-1100 M1 PO (15:49)
--- NOTE | 2020-11-15 20:00 | NUR ---
PT DISCHARGED TO [facility] LEFT IN WHEELCHAIR, GAIT BELT 2 PERSON TO CHAIR. 171. GIVEN MANILA ENVELOPE TO [place] CUTTING TABLE OPERATOR FIRST. CALLED REPORT TO RN AT [facility] 1630. NOTIFIED THAT METOPRLOL GIVEN AT 1700 AND ULTRAM GIVEN AT 1700 BEFORE DC. RN AWARE PT'S LAST BM 11/11 AND THAT BOWEL CARE ORDERS AND ULTRAM ADDED WRITTEN ORDERS. BELONGINGS SENT WITH PT.
== END 2020-11-15 17:17 | DRG 871 ==
LOC: ER 19:29 → PCU 22:18 → MEDS 11-12 12:20
PROVIDERS: Emergency Medicine; Hospitalist; Internal Medicine; Student in an Organized Health Care Education/Training Program; ADMIT Family Medicine
PROC: 30233N1 Transfusion of Nonautologous Red Blood Cells into Peripheral Vein, Percutaneous Approach (ICD-10-PCS; principal; 2020-11-10)
DX: A41.59 Other Gram-negative sepsis (principal); I50.43 Acute on chronic combined systolic (congestive) and diastolic (congestive) heart failure; I21.A1 Myocardial infarction type 2; N17.9 Acute kidney failure, unspecified; E87.2 Acidosis; E87.1 Hypo-osmolality and hyponatremia; Q74.3 Arthrogryposis multiplex congenita; N39.0 Urinary tract infection, site not specified; D64.9 Anemia, unspecified; Z20.822 Contact with and (suspected) exposure to COVID-19; I25.10 Atherosclerotic heart disease of native coronary artery without angina pectoris; E78.5 Hyperlipidemia, unspecified; M19.90 Unspecified osteoarthritis, unspecified site; I11.0 Hypertensive heart disease with heart failure; F10.10 Alcohol abuse, uncomplicated; B96.1 Klebsiella pneumoniae [K. pneumoniae] as the cause of diseases classified elsewhere; E66.9 Obesity, unspecified; K70.10 Alcoholic hepatitis without ascites; K57.30 Diverticulosis of large intestine without perforation or abscess without bleeding; Z68.26 Body mass index [BMI] 26.0-26.9, adult; Z71.41 Alcohol abuse counseling and surveillance of alcoholic; Z98.890 Other specified postprocedural states; Z95.5 Presence of coronary angioplasty implant and graft
CPT/HCPCS: 36415; 36430; 74176; 76705; 80053; 80074; 81001; 82607; 82728; 82746; 83540; 83550; 83605; 84484; 85014; 85018; 85025; 85610; 85730; 86850; 86900; 86901; 86923; 87040; 87077; 87086; 87186; 93005; 93010; 93306; 97110; 97110-CQ; 97162; 97167; 97530; 97530-CQ; 97535; 99285-25; A9270; C9113; J0696; J2405; J7030; J7050; P9016; U0004

== ENCOUNTER 2021-05-10 11:54 | Observation (INO) | payer OTHER ==
[~2021-05-10] VITALS: Ht 167.6 cm; Wt 72.6 kg
[~2021-05-10 11:54] MED LIST changes: +B-1100 M1 PO; +FOLI1 PO; +PANTOPRAZOLE SO40 M2 PO; +TRAZ50 PO
[2021-05-10] MEDS ORDERED: [UNRECOGNIZED DRUG - OTHER] IM (12:12)
[2021-05-10] MEDS ORDERED: FUROSEMIDE20 MG PO (12:12)
[2021-05-10] MEDS ORDERED: PSEUDOEPHEDRINE30 M1 PO (12:13)
[2021-05-10 12:51] LABS: Mean Corpuscular HGB Conc 31.9 g/dL (31.5-36.5); Mean Corpuscular Volume 116 fL (80-100); Platelet Count 127 K/mm3 (150-400); RDW Coefficient Variation 21.6 % (11.7-14.2); RDW Standard Deviation 90.2 fL (35.1-46.3); Red Blood Cell Count 1.38 M/mm3 (4.30-5.90); White Blood Cell Count 3.75 K/mm3 (4.00-11.30)
[2021-05-10 13:01] LABS: Mean Platelet Volume 13.3 fL (9.1-12.4)
[2021-05-10 13:03] LABS: Alanine Aminotransfer (ALT/SGP 35 U/L (12-78); Albumin, Blood 3.3 g/dL (3.4-5.0); Albumin/Globulin Ratio 0.8 (0.8-1.8); Alk Phos 75 U/L (50-136); Anion Gap 8 mmol/L (6-16); Aspartate Aminotrans (AST/SGOT 32 U/L (12-37); Blood Urea Nitrogen 16 mg/dL (8-24); CO2, Blood 24 mmol/L (21-32); Calcium, Blood 8.8 mg/dL (8.5-10.1); Chloride, Blood 107 mmol/L (98-108); Creatinine, Blood 0.67 mg/dL (0.60-1.20); Glomerular Filtration Rate >60 (60-); Glucose, Blood 109 mg/dL (70-99); Potassium, Blood 4.2 mmol/L (3.5-5.5); Sodium, Blood 139 mmol/L (136-145); Total Protein, Blood 7.3 g/dL (6.4-8.2)
[2021-05-10 13:06] LABS: Hemoglobin 5.1 g/dL (13.5-17.5)
[2021-05-10 13:17] LABS: BASOPHILS ABSOLUTE MAN 0.11 K/mm3 (0.00-0.23); BASOPHILS PERCENT MAN 3 % (0-2); EOSINOPHILS ABSOLUTE MAN 0.41 K/mm3 (0.00-0.68); EOSINOPHILS PERCENT MAN 11 % (0-6); LYMPHOCYTES ABSOLUTE MAN 0.82 K/mm3 (0.84-5.20); LYMPHOCYTES PERCENT MAN 22 % (21-46); MONOCYTES ABSOLUTE MAN 0.26 K/mm3 (0.16-1.47); MONOCYTES PERCENT MAN 7 % (4-13); NEUTROPHILS ABSOLUTE MAN 2.13 K/mm3 (1.96-9.15); SEG NEUTROPHILS PERCENT MAN 57 % (41-73); TOTAL CELLS COUNTED 100
[2021-05-10 18:23] LABS: CPK Creatine Kinase 101 U/L (39-308)
[2021-05-10 20:31] LABS: IMMATURE RETIC FRACTION 10.2 % (2.3-16.0); RETICULOCYTE COUNT PERCENT 1.36 % (0.50-2.50)
[2021-05-10 20:36] LABS: Free Thyroxine 0.7 ng/dL (0.70-1.60); Percent Saturation 95.9 % (20.0-50.0); Thyroid Stimulating Hormone 6.72 uIU/mL (0.360-4.800)
[2021-05-10] MEDS ORDERED: ATOR40TA PO (22:27)
[2021-05-10] MEDS ORDERED: ESCI20 PO (22:27)
[2021-05-10] MEDS ORDERED: SUDOGEST PO (22:29)
[2021-05-10] MEDS ORDERED: NITROFURANTOIN PO (22:30)
[2021-05-10 23:35] LABS: Source, Urine Clean Catch
[2021-05-10 23:39] LABS: Bilirubin, Urine Neg (Neg); Blood, Urine Neg (Neg); Glucose Qualitative, Urine Neg (Neg); Ketones, Urine Neg (Neg); Leukocyte Esterase, Urine Neg (Neg); Nitrite, Urine Neg (Neg); Protein, Urine Neg (Neg); Urobilinogen, Urine 3+ (Normal)
[2021-05-11 00:22] LABS: Appearance, Urine Clear (Clear); Color, Urine Yellow (P-Yellow)
[2021-05-11 01:49] LABS: BASOPHILS PERCENT AUTO 2 % (0-2); EOSINOPHILS ABSOLUTE AUTO 0.18 K/mm3 (0.00-0.68); EOSINOPHILS PERCENT AUTO 4 % (0-6); Hematocrit 21.6 % (37.0-53.0); Hemoglobin 7.3 g/dL (13.5-17.5); IMMATURE GRAN ABSOLUTE AUTO 0.03 K/mm3 (0.00-0.10); IMMATURE GRAN PERCENT AUTO 1 % (0-1); LYMPHOCYTES ABSOLUTE AUTO 1.07 K/mm3 (0.84-5.20); LYMPHOCYTES PERCENT AUTO 24 % (21-46); MONOCYTES ABSOLUTE AUTO 0.25 K/mm3 (0.16-1.47); MONOCYTES PERCENT AUTO 6 % (4-13); Mean Corpuscular HGB 34.8 pg (26.0-34.0); Mean Corpuscular HGB Conc 33.8 g/dL (31.5-36.5); Mean Corpuscular Volume 103 fL (80-100); Mean Platelet Volume 12.7 fL (9.1-12.4); NEUTROPHILS PERCENT AUTO 64 % (41-73); Platelet Count 118 K/mm3 (150-400); RDW Coefficient Variation 22.5 % (11.7-14.2); RDW Standard Deviation 80.4 fL (35.1-46.3); White Blood Cell Count 4.53 K/mm3 (4.00-11.30)
[2021-05-11 02:11] LABS: Alanine Aminotransfer (ALT/SGP 33 U/L (12-78); Albumin, Blood 3.1 g/dL (3.4-5.0); Albumin/Globulin Ratio 0.9 (0.8-1.8); Alk Phos 70 U/L (50-136); Anion Gap 6 mmol/L (6-16); Aspartate Aminotrans (AST/SGOT 24 U/L (12-37); Bilirubin, Total 2.5 mg/dL (0.1-1.0); Blood Urea Nitrogen 15 mg/dL (8-24); Bun/Creatinine Ratio 19.8 (12.0-20.0); CO2, Blood 26 mmol/L (21-32); CPK Creatine Kinase 134 U/L (39-308); Calcium, Blood 8.4 mg/dL (8.5-10.1); Chloride, Blood 108 mmol/L (98-108); Creatinine, Blood 0.76 mg/dL (0.60-1.20); Globulin, Blood 3.4 g/dL (2.2-4.0); Glomerular Filtration Rate >60 (60-); Glucose, Blood 121 mg/dL (70-99); Potassium, Blood 3.8 mmol/L (3.5-5.5); Sodium, Blood 140 mmol/L (136-145); Total Protein, Blood 6.5 g/dL (6.4-8.2)
--- NOTE | 2021-05-11 05:21 | NUR ---
ADMISSION NOTE/ SHIFT SUMMARY AOX4 ADMITTED AT MEDICAL FLOOR WITH CHRONIC ANEMIA WITH LEFT SIDE WEAKNESS PLEASANT LUNGS SOUNDS CLEAR DENIES PAIN.NO ACUTE CHANGE IN THIS SHIFT .
[2021-05-11 08:23] LABS: Hematocrit 22.4 % (37.0-53.0); Hemoglobin 7.4 g/dL (13.5-17.5)
[2021-05-11] MEDS ORDERED: ROSU10TA PO (11:13)
[2021-05-11] MEDS ORDERED: B-12500 MC2 PO (11:14)
[2021-05-11] MEDS ORDERED: OMEP20ER PO (11:14)
--- NOTE | 2021-05-11 12:24 | NUR ---
REVIEW D'C. AWARE HAS 2 MEDS AT [facility]. REVIEW WHEN AND WHY TAKING. HAS 2 F/U APPTS AND AWARE TO CALL IF UNABLE TO ATTEND. IV D'C NO SWELLING OR BRUISING. AWARE CAN RETURN TO E.R. IF ANY PROBLEMS. ANSWER ALL QUESTIONS. VERBALIZE UNDERSTANDING. IN W/C TO POV W/S.O. AND COMPLIANCE PROJECT MANAGER.
== END 2021-05-11 12:38 | disposition home or self-care (01) ==
LOC: ER 11:54 → MEDS 11:55
PROVIDERS: Family Medicine; Physician Assistant; ADMIT Internal Medicine
DX: D53.9 Nutritional anemia, unspecified (principal); R07.9 Chest pain, unspecified; I10 Essential (primary) hypertension; E78.5 Hyperlipidemia, unspecified; I25.10 Atherosclerotic heart disease of native coronary artery without angina pectoris; Q74.3 Arthrogryposis multiplex congenita; M19.90 Unspecified osteoarthritis, unspecified site; Z88.0 Allergy status to penicillin
CPT/HCPCS: 36415; 71045; 80053; 81003; 82550; 82607; 82728; 82746; 83540; 83550; 83880; 84439; 84443; 84484; 85014; 85018; 85025; 85045; 86850; 86900; 86901; 86923; 93005; 93010; A9270; J1650; J7030; P9016

== ENCOUNTER 2021-06-03 11:24 | Day surgery (SDC) | payer OTHER ==
[~2021-06-03 11:24] MED LIST changes: +ATOR40TA PO; +B-12500 MC2 PO; +ESCI20 PO; +FUROSEMIDE20 MG PO; +NITROFURANTOIN PO; +PSEUDOEPHEDRINE30 M1 PO; +ROSU10TA PO; +SUDOGEST PO; +[UNRECOGNIZED DRUG - OTHER] IM
[2021-06-03] MEDS ORDERED: METO25ER PO (14:24)
[2021-06-03] MEDS ORDERED: DEPO-TESTO200 MG/11 INJ (14:38)
== END 2021-06-03 17:14 | disposition home or self-care (01) ==
LOC: ATC 11:24 → LAB SHORT 11:24 → ATC 17:14 → EDSTATUS 04-19 13:05 → LAB FUT 04-19 13:05
DX: D64.9 Anemia, unspecified (principal); I25.10 Atherosclerotic heart disease of native coronary artery without angina pectoris; I10 Essential (primary) hypertension; E78.5 Hyperlipidemia, unspecified; M19.90 Unspecified osteoarthritis, unspecified site; N32.1 Vesicointestinal fistula; Z88.0 Allergy status to penicillin
CPT/HCPCS: 36415; 86850; 86900; 86901; 86923; P9016

== ENCOUNTER 2021-07-20 19:41 | Observation (INO) | payer OTHER ==
[~2021-07-20] VITALS: Ht 167.6 cm; Wt 76.5 kg
[~2021-07-20 19:41] MED LIST changes: +DEPO-TESTO200 MG/11 INJ; +METO25ER PO
[2021-07-20] MEDS ORDERED: VITAMIN B-1250 MCG PO (20:20)
[2021-07-20] MEDS ORDERED: FOLIC ACID0.4 MG PO (20:21)
[2021-07-20] MEDS ORDERED: ATOR40TA PO (20:22)
[2021-07-20] MEDS ORDERED: ZEPHREX-D30 MG PO (20:24)
[2021-07-20 20:28] LABS: Mean Corpuscular HGB 32.2 pg (26.0-34.0); Mean Corpuscular Volume 98 fL (80-100); Platelet Count 115 K/mm3 (150-400); RDW Coefficient Variation 17.6 % (11.7-14.2); RDW Standard Deviation 48.4 fL (35.1-46.3); Red Blood Cell Count 1.18 M/mm3 (4.30-5.90); White Blood Cell Count 3.94 K/mm3 (4.00-11.30)
[2021-07-20 20:37] LABS: Hematocrit 11.5 % (37.0-53.0)
[2021-07-20 20:38] LABS: Hemoglobin 3.8 g/dL (13.5-17.5)
[2021-07-20 20:44] LABS: Albumin, Blood 3.3 g/dL (3.4-5.0); Albumin/Globulin Ratio 0.9 (0.8-1.8); Bilirubin, Total 0.7 mg/dL (0.1-1.0); Bun/Creatinine Ratio 21.7 (12.0-20.0); Creatinine, Blood 0.78 mg/dL (0.60-1.20); Globulin, Blood 3.5 g/dL (2.2-4.0); Potassium, Blood 3.3 mmol/L (3.5-5.5); Total Protein, Blood 6.8 g/dL (6.4-8.2)
[2021-07-20 20:48] LABS: BASOPHILS PERCENT MAN 0 % (0-2); EOSINOPHILS ABSOLUTE MAN 0.15 K/mm3 (0.00-0.68); EOSINOPHILS PERCENT MAN 4 % (0-6); LYMPHOCYTES ABSOLUTE MAN 1.18 K/mm3 (0.84-5.20); LYMPHOCYTES PERCENT MAN 30 % (21-46); MONOCYTES ABSOLUTE MAN 0.03 K/mm3 (0.16-1.47); MONOCYTES PERCENT MAN 1 % (4-13); NEUTROPHILS ABSOLUTE MAN 2.56 K/mm3 (1.96-9.15); SEG NEUTROPHILS PERCENT MAN 65 % (41-73); TOTAL CELLS COUNTED 100
[2021-07-21 04:29] LABS: BASOPHILS ABSOLUTE AUTO 0.02 K/mm3 (0.00-0.23); BASOPHILS PERCENT AUTO 1 % (0-2); EOSINOPHILS ABSOLUTE AUTO 0.22 K/mm3 (0.00-0.68); EOSINOPHILS PERCENT AUTO 6 % (0-6); IMMATURE GRAN PERCENT AUTO 0 % (0-1); LYMPHOCYTES ABSOLUTE AUTO 0.92 K/mm3 (0.84-5.20); LYMPHOCYTES PERCENT AUTO 27 % (21-46); MONOCYTES ABSOLUTE AUTO 0.19 K/mm3 (0.16-1.47); MONOCYTES PERCENT AUTO 6 % (4-13); Mean Corpuscular HGB 31.7 pg (26.0-34.0); Mean Corpuscular HGB Conc 33.1 g/dL (31.5-36.5); Mean Corpuscular Volume 96 fL (80-100); Mean Platelet Volume 12.8 fL (9.1-12.4); NEUTROPHILS ABSOLUTE AUTO 2.07 K/mm3 (1.96-9.15); NEUTROPHILS PERCENT AUTO 61 % (41-73); Platelet Count 111 K/mm3 (150-400); RDW Coefficient Variation 15.8 % (11.7-14.2); RDW Standard Deviation 47.1 fL (35.1-46.3); Red Blood Cell Count 1.64 M/mm3 (4.30-5.90); White Blood Cell Count 3.42 K/mm3 (4.00-11.30)
[2021-07-21 04:35] LABS: Hematocrit 15.7 % (37.0-53.0); Hemoglobin 5.2 g/dL (13.5-17.5)
[2021-07-21 04:51] LABS: Albumin, Blood 3.2 g/dL (3.4-5.0); Albumin/Globulin Ratio 0.9 (0.8-1.8); Bilirubin, Total 2.3 mg/dL (0.1-1.0); Calcium, Blood 8.7 mg/dL (8.5-10.1); Creatinine, Blood 0.71 mg/dL (0.60-1.20); Globulin, Blood 3.6 g/dL (2.2-4.0); Potassium, Blood 3.8 mmol/L (3.5-5.5); Total Protein, Blood 6.8 g/dL (6.4-8.2)
[2021-07-21 13:42] LABS: Hematocrit 20.8 % (37.0-53.0)
[2021-07-21 20:19] LABS: Hemoglobin 8.1 g/dL (13.5-17.5)
[2021-07-22 05:25] LABS: BASOPHILS ABSOLUTE AUTO 0.05 K/mm3 (0.00-0.23); BASOPHILS PERCENT AUTO 1 % (0-2); EOSINOPHILS ABSOLUTE AUTO 0.31 K/mm3 (0.00-0.68); EOSINOPHILS PERCENT AUTO 7 % (0-6); Hematocrit 24.1 % (37.0-53.0); Hemoglobin 7.9 g/dL (13.5-17.5); IMMATURE GRAN ABSOLUTE AUTO 0.02 K/mm3 (0.00-0.10); IMMATURE GRAN PERCENT AUTO 0 % (0-1); LYMPHOCYTES ABSOLUTE AUTO 0.81 K/mm3 (0.84-5.20); LYMPHOCYTES PERCENT AUTO 17 % (21-46); MONOCYTES ABSOLUTE AUTO 0.23 K/mm3 (0.16-1.47); MONOCYTES PERCENT AUTO 5 % (4-13); Mean Corpuscular HGB Conc 32.8 g/dL (31.5-36.5); Mean Corpuscular Volume 95 fL (80-100); Mean Platelet Volume 12.9 fL (9.1-12.4); NEUTROPHILS ABSOLUTE AUTO 3.27 K/mm3 (1.96-9.15); NEUTROPHILS PERCENT AUTO 70 % (41-73); Platelet Count 103 K/mm3 (150-400); RDW Coefficient Variation 15.4 % (11.7-14.2); RDW Standard Deviation 49.1 fL (35.1-46.3); Red Blood Cell Count 2.55 M/mm3 (4.30-5.90); White Blood Cell Count 4.69 K/mm3 (4.00-11.30)
== END 2021-07-22 14:22 | disposition home or self-care (01) ==
LOC: ER 19:41 → MEDS 19:42
PROVIDERS: Emergency Medicine; Internal Medicine; Surgery; ADMIT Internal Medicine
PROC: 05HM33Z Insertion of Infusion Device into Right Internal Jugular Vein, Percutaneous Approach (ICD-10-PCS; principal; 2021-07-22 09:30)
DX: D46.9 Myelodysplastic syndrome, unspecified (principal); I21.4 Non-ST elevation (NSTEMI) myocardial infarction; I25.10 Atherosclerotic heart disease of native coronary artery without angina pectoris; I10 Essential (primary) hypertension; Q74.3 Arthrogryposis multiplex congenita; E78.5 Hyperlipidemia, unspecified; E29.1 Testicular hypofunction; K21.9 Gastro-esophageal reflux disease without esophagitis; E87.6 Hypokalemia; M19.90 Unspecified osteoarthritis, unspecified site; Z95.1 Presence of aortocoronary bypass graft; Z88.0 Allergy status to penicillin; Z85.89 Personal history of malignant neoplasm of other organs and systems
CPT/HCPCS: 36415; 36430; 80053; 84484; 85014; 85018; 85025; 86850; 86900; 86901; 86920; 86923; 93005; 93010; 99285-25; A9270; J0690; J1642; J7030; J7120; P9016

== ENCOUNTER 2021-08-08 14:01 | Day surgery (SDC) | payer OTHER ==
[~2021-08-08 14:01] MED LIST changes: +FOLIC ACID0.4 MG PO; +VITAMIN B-1250 MCG PO; +ZEPHREX-D30 MG PO
[2021-08-08] MEDS ORDERED: DEXA4 (16:29)
[2021-08-08] MEDS ORDERED: ACYCLOVIR400 MG PO (16:29)
== END 2021-08-08 23:53 | disposition home or self-care (01) ==
LOC: ATC 14:01
DX: D46.A Refractory cytopenia with multilineage dysplasia (principal); D69.9 Hemorrhagic condition, unspecified; Z88.0 Allergy status to penicillin; I25.10 Atherosclerotic heart disease of native coronary artery without angina pectoris; I10 Essential (primary) hypertension; E78.5 Hyperlipidemia, unspecified; M19.90 Unspecified osteoarthritis, unspecified site; Z95.1 Presence of aortocoronary bypass graft
CPT/HCPCS: 86900; 86901; J1200; J1642; J7040; P9035

== ENCOUNTER → 2021-08-23 | Outpatient (CLI) | payer OTHER ==
[~2021-08-23] MED LIST changes: +ACYCLOVIR400 MG PO; +DEXA4
[2021-08-23 14:11] LABS: BASOPHILS ABSOLUTE AUTO 0.01 K/mm3 (0.00-0.23); BASOPHILS PERCENT AUTO 1 % (0-2); EOSINOPHILS ABSOLUTE AUTO 0.01 K/mm3 (0.00-0.68); EOSINOPHILS PERCENT AUTO 1 % (0-6); Hematocrit 19.7 % (37.0-53.0); Hemoglobin 6.6 g/dL (13.5-17.5); IMMATURE GRAN ABSOLUTE AUTO 0.02 K/mm3 (0.00-0.10); IMMATURE GRAN PERCENT AUTO 1 % (0-1); LYMPHOCYTES ABSOLUTE AUTO 0.69 K/mm3 (0.84-5.20); LYMPHOCYTES PERCENT AUTO 33 % (21-46); MONOCYTES ABSOLUTE AUTO 0.04 K/mm3 (0.16-1.47); MONOCYTES PERCENT AUTO 2 % (4-13); Mean Corpuscular HGB 30.1 pg (26.0-34.0); Mean Corpuscular HGB Conc 33.5 g/dL (31.5-36.5); Mean Corpuscular Volume 90 fL (80-100); NEUTROPHILS ABSOLUTE AUTO 1.32 K/mm3 (1.96-9.15); NEUTROPHILS PERCENT AUTO 63 % (41-73); RDW Coefficient Variation 15.3 % (11.7-14.2); RDW Standard Deviation 46.5 fL (35.1-46.3); Red Blood Cell Count 2.19 M/mm3 (4.30-5.90); White Blood Cell Count 2.09 K/mm3 (4.00-11.30)
[2021-08-23 14:26] LABS: Platelet Count 36 K/mm3 (150-400)
== END | disposition home or self-care (01) ==
LOC: LAB SHORT 13:55 → LAB 13:55
PROVIDERS: Internal Medicine Hematology & Oncology
DX: D46.9 Myelodysplastic syndrome, unspecified (principal)
CPT/HCPCS: 85025

== ENCOUNTER 2021-08-24 12:02 | Emergency (ER) | payer OTHER ==
[~2021-08-24] VITALS: Ht 167.6 cm; Wt 74.8 kg
[2021-08-24 13:24] LABS: BASOPHILS PERCENT AUTO 0 % (0-2); EOSINOPHILS PERCENT AUTO 0 % (0-6); Hematocrit 20.1 % (37.0-53.0); Hemoglobin 6.8 g/dL (13.5-17.5); Mean Corpuscular HGB 30.1 pg (26.0-34.0); Mean Corpuscular HGB Conc 33.8 g/dL (31.5-36.5); Mean Corpuscular Volume 89 fL (80-100); RDW Coefficient Variation 15.9 % (11.7-14.2); Red Blood Cell Count 2.26 M/mm3 (4.30-5.90); White Blood Cell Count 2.21 K/mm3 (4.00-11.30)
[2021-08-24 13:37] LABS: IMMATURE GRAN ABSOLUTE AUTO 0.03 K/mm3 (0.00-0.10); IMMATURE GRAN PERCENT AUTO 1 % (0-1); LYMPHOCYTES ABSOLUTE AUTO 0.19 K/mm3 (0.84-5.20); LYMPHOCYTES PERCENT AUTO 9 % (21-46); MONOCYTES ABSOLUTE AUTO 0.07 K/mm3 (0.16-1.47); MONOCYTES PERCENT AUTO 3 % (4-13); Mean Platelet Volume 13.9 fL (9.1-12.4); NEUTROPHILS ABSOLUTE AUTO 1.92 K/mm3 (1.96-9.15); NEUTROPHILS PERCENT AUTO 87 % (41-73); Platelet Count 44 K/mm3 (150-400)
[2021-08-24 14:28] LABS: Albumin, Blood 3.2 g/dL (3.4-5.0); Bilirubin, Total 0.9 mg/dL (0.1-1.0); Bun/Creatinine Ratio 34.1 (12.0-20.0); Creatinine, Blood 0.79 mg/dL (0.60-1.20); Globulin, Blood 3.3 g/dL (2.2-4.0); Potassium, Blood 3.2 mmol/L (3.5-5.5); Total Protein, Blood 6.5 g/dL (6.4-8.2)
[2021-08-24 19:56] LABS: Hematocrit 23.4 % (37.0-53.0); Hemoglobin 8.1 g/dL (13.5-17.5); Mean Corpuscular HGB 30.2 pg (26.0-34.0); Mean Corpuscular HGB Conc 34.6 g/dL (31.5-36.5); Mean Corpuscular Volume 87 fL (80-100); RDW Coefficient Variation 15.3 % (11.7-14.2); RDW Standard Deviation 45.7 fL (35.1-46.3); Red Blood Cell Count 2.68 M/mm3 (4.30-5.90); White Blood Cell Count 1.74 K/mm3 (4.00-11.30)
[2021-08-24 20:09] LABS: Platelet Count 33 K/mm3 (150-400)
== END 2021-08-24 22:10 | disposition home or self-care (01) ==
LOC: ER 12:02
PROVIDERS: Physician Assistant; Student in an Organized Health Care Education/Training Program
DX: I95.1 Orthostatic hypotension (principal); D64.9 Anemia, unspecified; D61.818 Other pancytopenia; I25.10 Atherosclerotic heart disease of native coronary artery without angina pectoris; I10 Essential (primary) hypertension; Z88.0 Allergy status to penicillin; Z79.899 Other long term (current) drug therapy; Z95.1 Presence of aortocoronary bypass graft
CPT/HCPCS: 36415; 80053; 83735; 85025; 85027; 86850; 86900; 86901; 86923; 93005; 93010; A9270; J1200; J1940; J7030; P9016

== ENCOUNTER 2021-08-30 11:24 | Day surgery (SDC) | payer OTHER ==
[2021-08-29 14:29] LABS: BASOPHILS ABSOLUTE AUTO 0.01 K/mm3 (0.00-0.23); BASOPHILS PERCENT AUTO 0 % (0-2); EOSINOPHILS PERCENT AUTO 0 % (0-6); Hemoglobin 8.2 g/dL (13.5-17.5); IMMATURE GRAN ABSOLUTE AUTO 0.03 K/mm3 (0.00-0.10); IMMATURE GRAN PERCENT AUTO 1 % (0-1); LYMPHOCYTES ABSOLUTE AUTO 0.12 K/mm3 (0.84-5.20); LYMPHOCYTES PERCENT AUTO 5 % (21-46); MONOCYTES ABSOLUTE AUTO 0.05 K/mm3 (0.16-1.47); MONOCYTES PERCENT AUTO 2 % (4-13); Mean Corpuscular HGB 29.3 pg (26.0-34.0); Mean Corpuscular HGB Conc 32.8 g/dL (31.5-36.5); Mean Corpuscular Volume 89 fL (80-100); NEUTROPHILS ABSOLUTE AUTO 2.32 K/mm3 (1.96-9.15); NEUTROPHILS PERCENT AUTO 92 % (41-73); RDW Coefficient Variation 14.9 % (11.7-14.2); RDW Standard Deviation 46.2 fL (35.1-46.3); White Blood Cell Count 2.53 K/mm3 (4.00-11.30)
[2021-08-29 14:36] LABS: Albumin, Blood 2.9 g/dL (3.4-5.0); Bilirubin, Total 0.9 mg/dL (0.1-1.0); Calcium, Blood 8.7 mg/dL (8.5-10.1); Creatinine, Blood 0.57 mg/dL (0.60-1.20); Potassium, Blood 3.3 mmol/L (3.5-5.5); Total Protein, Blood 5.9 g/dL (6.4-8.2)
[2021-08-29 14:43] LABS: Platelet Count 9 K/mm3 (150-400)
[2021-09-29] MEDS ORDERED: BENADRYL25 MG PO (11:33)
[2021-09-29] MEDS ORDERED: PSEU120ER PO (11:34)
[2021-09-29] MEDS ORDERED: TESTOSTERO200 MG/1 M IM (11:34)
[2021-09-29] MEDS ORDERED: OXYC5 PO (12:00)
[2021-09-29] MEDS ORDERED: ACYC400 PO (12:01)
[2021-09-29] MEDS ORDERED: DECADRON4 M1 PO (12:01)
== END 2021-08-30 16:00 | disposition home or self-care (01) ==
LOC: ATC 11:24
PROVIDERS: Internal Medicine Hematology & Oncology
DX: D69.59 Other secondary thrombocytopenia (principal); D46.9 Myelodysplastic syndrome, unspecified
CPT/HCPCS: 36430; 80053; 85025; 86900; 86901; 96374; J1200; J1642; J7040; P9035

== ENCOUNTER → 2021-09-01 | Outpatient (CLI) | payer OTHER ==
[2021-09-02 09:55] LABS: C DIFFICILE DNA NEGATIVE (Negative)
== END | disposition home or self-care (01) ==
LOC: LAB SHORT 10:30 → LAB 10:30
PROVIDERS: Internal Medicine Hematology & Oncology
DX: D46.9 Myelodysplastic syndrome, unspecified (principal)
CPT/HCPCS: 87493

== ENCOUNTER 2021-09-07 02:20 | Day surgery (SDC) | payer OTHER | END 2021-09-07 18:34 | disposition home or self-care (01) | LOC: ATC 02:20 | DX: D46.A Refractory cytopenia with multilineage dysplasia (principal); D69.59 Other secondary thrombocytopenia; I10 Essential (primary) hypertension; E78.5 Hyperlipidemia, unspecified; Z95.1 Presence of aortocoronary bypass graft ==

== ENCOUNTER 2021-09-30 06:13 | Day surgery (SDC) | payer OTHER ==
[~2021-09-30] VITALS: Ht 167.6 cm; Wt 65.0 kg
[~2021-09-30 06:13] MED LIST changes: +ACYC400 PO; +BENADRYL25 MG PO; +DECADRON4 M1 PO; +OXYC5 PO; +PSEU120ER PO; +TESTOSTERO200 MG/1 M IM
--- NOTE | 2021-09-30 07:02 | NUR ---
History, Chart, Medications and Allergies reviewed before start of procedure. Lungs clear T/O to Auscultation. Patient confirms NPO status and agrees with scheduled surgery. Pre-Op teaching done. Pt verbalizes understanding. Patient States Post-Procedure ride home has been arranged.
--- NOTE | 2021-09-30 07:34 | NUR ---
09/30/21 0734 Suman Gavin History, Chart, Medications and Allergies reviewed before start of procedure.MONITOR INTACT WITH CONTINUOUS PULSE OXIMETRY AND INTERMITTENT BP.3-LEAD EKG REVIEWED WITH PHYSICIAN PRIOR TO START OF PROCEDURE.O2 VIA POM INTACT THROUGHOUT SEDATION/PROCEDURE. See Anesthesia record.
--- NOTE | 2021-09-30 08:11 | NUR ---
ASSUMED CARE, REPORT FROM KASEY WASHINGTON
--- NOTE | 2021-09-30 08:25 | NUR ---
History, Chart, Medications and Allergies reviewed before start of procedure. Lungs clear T/O to Auscultation. Patient confirms NPO status and agrees with scheduled surgery. Pre-Op teaching done. Pt verbalizes understanding.
--- NOTE | 2021-09-30 08:40 | NUR ---
Dressing to procedure site clean, dry, intact with no visible drainage, swelling, erythema or bruising noted. Discharge instructions reviewed with patient. Patient verbalizes understanding. Copy given to patient to take home.
--- NOTE | 2021-09-30 09:01 | NUR ---
Discharged via wheelchair to private car for ride home.
== END 2021-09-30 09:02 | disposition home or self-care (01) ==
LOC: ORSCMMR 06:13 → ORD 10:45 → ORSCMMR 10:45
PROVIDERS: Surgery
PROC: 0DH63UZ Insertion of Feeding Device into Stomach, Percutaneous Approach (ICD-10-PCS; principal; 2021-09-30 07:30)
DX: C90.00 Multiple myeloma not having achieved remission (principal); R13.14 Dysphagia, pharyngoesophageal phase; D46.A Refractory cytopenia with multilineage dysplasia; I10 Essential (primary) hypertension; I25.10 Atherosclerotic heart disease of native coronary artery without angina pectoris; K21.9 Gastro-esophageal reflux disease without esophagitis; I25.2 Old myocardial infarction; E78.5 Hyperlipidemia, unspecified; Z79.899 Other long term (current) drug therapy
CPT/HCPCS: J0690; J2405; J7120

== ENCOUNTER 2021-10-18 01:37 | Day surgery (SDC) | payer OTHER | END 2021-10-18 23:59 | disposition home or self-care (01) | LOC: ATC 01:37 | DX: D46.A Refractory cytopenia with multilineage dysplasia (principal); C90.00 Multiple myeloma not having achieved remission; I25.10 Atherosclerotic heart disease of native coronary artery without angina pectoris; I10 Essential (primary) hypertension; Z95.1 Presence of aortocoronary bypass graft; Z88.0 Allergy status to penicillin | CPT/HCPCS: 36430; 86850; 86900; 86901; 86923; 96374; J1200; J1642; J7040; P9016 ==

== ENCOUNTER 2021-12-01 03:52 | Day surgery (SDC) | payer OTHER ==
[2021-11-29 14:22] LABS: BASOPHILS ABSOLUTE AUTO 0.13 K/mm3 (0.00-0.23); BASOPHILS PERCENT AUTO 3 % (0-2); EOSINOPHILS ABSOLUTE AUTO 0.25 K/mm3 (0.00-0.68); EOSINOPHILS PERCENT AUTO 5 % (0-6); Hematocrit 23.3 % (37.0-53.0); Hemoglobin 7.3 g/dL (13.5-17.5); IMMATURE GRAN ABSOLUTE AUTO 0.05 K/mm3 (0.00-0.10); IMMATURE GRAN PERCENT AUTO 1 % (0-1); LYMPHOCYTES PERCENT AUTO 12 % (21-46); MONOCYTES ABSOLUTE AUTO 0.25 K/mm3 (0.16-1.47); MONOCYTES PERCENT AUTO 5 % (4-13); Mean Corpuscular HGB 29.2 pg (26.0-34.0); Mean Corpuscular HGB Conc 31.3 g/dL (31.5-36.5); Mean Corpuscular Volume 93 fL (80-100); NEUTROPHILS ABSOLUTE AUTO 3.81 K/mm3 (1.96-9.15); NEUTROPHILS PERCENT AUTO 75 % (41-73); Platelet Count 267 K/mm3 (150-400); RDW Coefficient Variation 16.7 % (11.7-14.2); RDW Standard Deviation 52.7 fL (35.1-46.3); White Blood Cell Count 5.09 K/mm3 (4.00-11.30)
[2021-12-01] MEDS ORDERED: GABA100 PO (08:02)
== END 2021-12-01 11:12 | disposition home or self-care (01) ==
LOC: ATC 03:52 → EDSTATUS 07:30 → ATC 11:12
PROVIDERS: Internal Medicine Hematology & Oncology
DX: D46.A Refractory cytopenia with multilineage dysplasia (principal); C90.00 Multiple myeloma not having achieved remission; I25.10 Atherosclerotic heart disease of native coronary artery without angina pectoris; I10 Essential (primary) hypertension; E78.5 Hyperlipidemia, unspecified; Z95.1 Presence of aortocoronary bypass graft; Z88.0 Allergy status to penicillin
CPT/HCPCS: 36415; 36430; 85025; 86850; 86900; 86901; 86923; J1200; J1642; J7040; P9016

== ENCOUNTER 2022-01-06 00:21 | Day surgery (SDC) | payer OTHER ==
[2022-01-04 11:34] LABS: BASOPHILS ABSOLUTE AUTO 0.11 K/mm3 (0.00-0.23); BASOPHILS PERCENT AUTO 2 % (0-2); EOSINOPHILS ABSOLUTE AUTO 0.21 K/mm3 (0.00-0.68); EOSINOPHILS PERCENT AUTO 4 % (0-6); Hematocrit 20.1 % (37.0-53.0); Hemoglobin 6.2 g/dL (13.5-17.5); IMMATURE GRAN ABSOLUTE AUTO 0.04 K/mm3 (0.00-0.10); IMMATURE GRAN PERCENT AUTO 1 % (0-1); LYMPHOCYTES PERCENT AUTO 11 % (21-46); MONOCYTES ABSOLUTE AUTO 0.28 K/mm3 (0.16-1.47); MONOCYTES PERCENT AUTO 5 % (4-13); Mean Corpuscular HGB 30.4 pg (26.0-34.0); Mean Corpuscular HGB Conc 30.8 g/dL (31.5-36.5); Mean Corpuscular Volume 99 fL (80-100); Mean Platelet Volume 12.9 fL (9.1-12.4); NEUTROPHILS PERCENT AUTO 78 % (41-73); NRBC ABSOLUTE 0.02 K/mm3 (0.00-0.02); NRBC Auto 0.3 /100 WBC (0.0-0.2); Platelet Count 360 K/mm3 (150-400); RDW Coefficient Variation 20.8 % (11.7-14.2); RDW Standard Deviation 70.2 fL (35.1-46.3); Red Blood Cell Count 2.04 M/mm3 (4.30-5.90); White Blood Cell Count 5.74 K/mm3 (4.00-11.30)
[~2022-01-06 00:21] MED LIST changes: +GABA100 PO
== END 2022-01-06 17:31 | disposition home or self-care (01) ==
LOC: ATC 00:21 → LAB FUT 10-17 13:50 → EDSTATUS 10-17 13:50
PROVIDERS: Internal Medicine Hematology & Oncology
DX: D46.A Refractory cytopenia with multilineage dysplasia (principal); D46.9 Myelodysplastic syndrome, unspecified; I25.10 Atherosclerotic heart disease of native coronary artery without angina pectoris; I10 Essential (primary) hypertension; Z88.0 Allergy status to penicillin
CPT/HCPCS: 36415; 36430; 85025; 86850; 86900; 86901; 86923; 96374; J1200; J1642; J7040; P9016

== ENCOUNTER 2022-02-08 00:27 | Day surgery (SDC) | payer OTHER ==
[2022-02-07 13:28] LABS: BASOPHILS ABSOLUTE AUTO 0.11 K/mm3 (0.00-0.23); BASOPHILS PERCENT AUTO 2 % (0-2); EOSINOPHILS ABSOLUTE AUTO 0.41 K/mm3 (0.00-0.68); EOSINOPHILS PERCENT AUTO 7 % (0-6); Hematocrit 20.3 % (37.0-53.0); Hemoglobin 6.5 g/dL (13.5-17.5); IMMATURE GRAN ABSOLUTE AUTO 0.05 K/mm3 (0.00-0.10); IMMATURE GRAN PERCENT AUTO 1 % (0-1); LYMPHOCYTES ABSOLUTE AUTO 0.64 K/mm3 (0.84-5.20); LYMPHOCYTES PERCENT AUTO 12 % (21-46); MONOCYTES ABSOLUTE AUTO 0.27 K/mm3 (0.16-1.47); MONOCYTES PERCENT AUTO 5 % (4-13); Mean Corpuscular HGB 31.4 pg (26.0-34.0); Mean Corpuscular Volume 98 fL (80-100); Mean Platelet Volume 12.7 fL (9.1-12.4); NEUTROPHILS ABSOLUTE AUTO 4.03 K/mm3 (1.96-9.15); NEUTROPHILS PERCENT AUTO 73 % (41-73); Platelet Count 323 K/mm3 (150-400); RDW Coefficient Variation 24.3 % (11.7-14.2); RDW Standard Deviation 80.8 fL (35.1-46.3); Red Blood Cell Count 2.07 M/mm3 (4.30-5.90); White Blood Cell Count 5.51 K/mm3 (4.00-11.30)
== END 2022-02-08 17:47 | disposition home or self-care (01) ==
LOC: ATC 00:27 → EDSTATUS 14:00 → ATC 17:47
PROVIDERS: Internal Medicine Hematology & Oncology
DX: D46.A Refractory cytopenia with multilineage dysplasia (principal)
CPT/HCPCS: 36415; 36430; 85025; 86850; 86900; 86901; 86923; 96374; J1200; J1642; J7040; P9016

== ENCOUNTER 2022-03-17 00:20 | Day surgery (SDC) | payer OTHER ==
[2022-03-15 18:12] LABS: BASOPHILS ABSOLUTE AUTO 0.15 K/mm3 (0.00-0.23); BASOPHILS PERCENT AUTO 3 % (0-2); EOSINOPHILS ABSOLUTE AUTO 0.38 K/mm3 (0.00-0.68); EOSINOPHILS PERCENT AUTO 7 % (0-6); Hematocrit 19.8 % (37.0-53.0); Hemoglobin 6.7 g/dL (13.5-17.5); IMMATURE GRAN ABSOLUTE AUTO 0.07 K/mm3 (0.00-0.10); IMMATURE GRAN PERCENT AUTO 1 % (0-1); LYMPHOCYTES ABSOLUTE AUTO 0.76 K/mm3 (0.84-5.20); LYMPHOCYTES PERCENT AUTO 14 % (21-46); MONOCYTES ABSOLUTE AUTO 0.37 K/mm3 (0.16-1.47); MONOCYTES PERCENT AUTO 7 % (4-13); Mean Corpuscular HGB 32.8 pg (26.0-34.0); Mean Corpuscular HGB Conc 33.8 g/dL (31.5-36.5); Mean Corpuscular Volume 97 fL (80-100); NEUTROPHILS ABSOLUTE AUTO 3.54 K/mm3 (1.96-9.15); NEUTROPHILS PERCENT AUTO 67 % (41-73); Platelet Count 284 K/mm3 (150-400); RDW Coefficient Variation 18.8 % (11.7-14.2); RDW Standard Deviation 64.5 fL (35.1-46.3); Red Blood Cell Count 2.04 M/mm3 (4.30-5.90); White Blood Cell Count 5.27 K/mm3 (4.00-11.30)
[2022-03-15 18:14] LABS: Mean Platelet Volume 13.4 fL (9.1-12.4)
== END 2022-03-17 16:07 | disposition home or self-care (01) ==
LOC: ATC 00:20
PROVIDERS: Internal Medicine Hematology & Oncology
DX: D46.A Refractory cytopenia with multilineage dysplasia (principal); I25.10 Atherosclerotic heart disease of native coronary artery without angina pectoris; E78.5 Hyperlipidemia, unspecified; M19.90 Unspecified osteoarthritis, unspecified site; I10 Essential (primary) hypertension; Z95.1 Presence of aortocoronary bypass graft
CPT/HCPCS: 36415; 85025; 86850; 86900; 86901; 86923; J1200; J1642; J7040; P9016

== ENCOUNTER 2022-03-31 00:40 | Day surgery (SDC) | payer OTHER ==
[2022-03-28 13:05] LABS: BASOPHILS ABSOLUTE AUTO 0.13 K/mm3 (0.00-0.23); BASOPHILS PERCENT AUTO 4 % (0-2); EOSINOPHILS ABSOLUTE AUTO 0.35 K/mm3 (0.00-0.68); EOSINOPHILS PERCENT AUTO 10 % (0-6); Hematocrit 21.7 % (37.0-53.0); IMMATURE GRAN ABSOLUTE AUTO 0.05 K/mm3 (0.00-0.10); IMMATURE GRAN PERCENT AUTO 1 % (0-1); LYMPHOCYTES PERCENT AUTO 19 % (21-46); MONOCYTES ABSOLUTE AUTO 0.25 K/mm3 (0.16-1.47); MONOCYTES PERCENT AUTO 7 % (4-13); Mean Corpuscular HGB 32.3 pg (26.0-34.0); Mean Corpuscular HGB Conc 32.3 g/dL (31.5-36.5); Mean Corpuscular Volume 100 fL (80-100); Mean Platelet Volume 12.9 fL (9.1-12.4); NEUTROPHILS ABSOLUTE AUTO 2.22 K/mm3 (1.96-9.15); NEUTROPHILS PERCENT AUTO 60 % (41-73); Platelet Count 234 K/mm3 (150-400); RDW Coefficient Variation 16.3 % (11.7-14.2); RDW Standard Deviation 55.8 fL (35.1-46.3); Red Blood Cell Count 2.17 M/mm3 (4.30-5.90)
[~2022-03-31 00:40] MED LIST changes: +1/2 NS 250ml250 ML; +Ativan1 MG PO
== END 2022-03-31 15:40 | disposition home or self-care (01) ==
LOC: ATC 00:40 → EDSTATUS 13:30 → ATC 15:40
PROVIDERS: Internal Medicine Hematology & Oncology
DX: D46.9 Myelodysplastic syndrome, unspecified (principal); I25.10 Atherosclerotic heart disease of native coronary artery without angina pectoris; I10 Essential (primary) hypertension; E78.5 Hyperlipidemia, unspecified; M19.90 Unspecified osteoarthritis, unspecified site
CPT/HCPCS: 36415; 85025; 86850; 86900; 86901; 86923; J1200; J1642; J7040; P9016

== ENCOUNTER 2022-04-14 01:18 | Day surgery (SDC) | payer OTHER ==
[2022-04-12 17:26] LABS: BASOPHILS ABSOLUTE AUTO 0.09 K/mm3 (0.00-0.23); BASOPHILS PERCENT AUTO 2 % (0-2); EOSINOPHILS ABSOLUTE AUTO 0.27 K/mm3 (0.00-0.68); EOSINOPHILS PERCENT AUTO 6 % (0-6); Hemoglobin 6.1 g/dL (13.5-17.5); IMMATURE GRAN ABSOLUTE AUTO 0.06 K/mm3 (0.00-0.10); IMMATURE GRAN PERCENT AUTO 1 % (0-1); LYMPHOCYTES ABSOLUTE AUTO 0.58 K/mm3 (0.84-5.20); LYMPHOCYTES PERCENT AUTO 13 % (21-46); MONOCYTES ABSOLUTE AUTO 0.28 K/mm3 (0.16-1.47); MONOCYTES PERCENT AUTO 6 % (4-13); Mean Corpuscular HGB 31.6 pg (26.0-34.0); Mean Corpuscular HGB Conc 32.1 g/dL (31.5-36.5); Mean Corpuscular Volume 98 fL (80-100); NEUTROPHILS ABSOLUTE AUTO 3.08 K/mm3 (1.96-9.15); NEUTROPHILS PERCENT AUTO 71 % (41-73); Platelet Count 261 K/mm3 (150-400); RDW Coefficient Variation 17.4 % (11.7-14.2); Red Blood Cell Count 1.93 M/mm3 (4.30-5.90); White Blood Cell Count 4.36 K/mm3 (4.00-11.30)
[2022-04-12 17:28] LABS: Mean Platelet Volume 13.4 fL (9.1-12.4)
== END 2022-04-14 17:47 | disposition home or self-care (01) ==
LOC: ATC 01:18 → EDSTATUS 14:00 → ATC 14:00
PROVIDERS: Internal Medicine Hematology & Oncology
DX: D46.A Refractory cytopenia with multilineage dysplasia (principal)
CPT/HCPCS: 36415; 36430; 85025; 86850; 86900; 86901; 86923; 96374; J1200; J1642; J7050; P9016

== ENCOUNTER 2022-05-04 02:02 | Day surgery (SDC) | payer OTHER ==
[2022-05-02 18:03] LABS: Hematocrit 24.8 % (37.0-53.0); Hemoglobin 7.9 g/dL (13.5-17.5); Mean Corpuscular HGB 29.6 pg (26.0-34.0); Mean Corpuscular HGB Conc 31.9 g/dL (31.5-36.5); Mean Corpuscular Volume 93 fL (80-100); Mean Platelet Volume 12.9 fL (9.1-12.4); Platelet Count 192 K/mm3 (150-400); RDW Coefficient Variation 16.7 % (11.7-14.2); RDW Standard Deviation 50.6 fL (35.1-46.3); Red Blood Cell Count 2.67 M/mm3 (4.30-5.90); White Blood Cell Count 3.03 K/mm3 (4.00-11.30)
[2022-05-02 19:23] LABS: BASOPHILS ABSOLUTE MAN 0.15 K/mm3 (0.00-0.23); BASOPHILS PERCENT MAN 5 % (0-2); EOSINOPHILS ABSOLUTE MAN 0.21 K/mm3 (0.00-0.68); EOSINOPHILS PERCENT MAN 7 % (0-6); LYMPHOCYTES PERCENT MAN 20 % (21-46); MONOCYTES ABSOLUTE MAN 0.12 K/mm3 (0.16-1.47); MONOCYTES PERCENT MAN 4 % (4-13); NEUTROPHILS ABSOLUTE MAN 1.93 K/mm3 (1.96-9.15); SEG NEUTROPHILS PERCENT MAN 64 % (41-73); TOTAL CELLS COUNTED 100
== END 2022-05-04 15:58 | disposition home or self-care (01) ==
LOC: ATC 02:02 → EDSTATUS 14:00 → ATC 15:58
PROVIDERS: Internal Medicine Hematology & Oncology
DX: D46.A Refractory cytopenia with multilineage dysplasia (principal)
CPT/HCPCS: 36415; 36430; 85025; 86850; 86900; 86901; 86923; 96374; J1200; J1642; J7050; P9016

== ENCOUNTER 2022-05-18 01:44 | Day surgery (SDC) | payer OTHER | END 2022-05-18 16:03 | disposition home or self-care (01) | LOC: ATC 01:44 | DX: D46.A Refractory cytopenia with multilineage dysplasia (principal) | CPT/HCPCS: 36430; 86850; 86900; 86901; 86923; 96374; J1200; J1642; J7050; P9016 ==

== ENCOUNTER 2022-06-08 00:58 | Day surgery (SDC) | payer OTHER ==
[2022-06-06 18:09] LABS: Hematocrit 20.1 % (37.0-53.0); Hemoglobin 6.8 g/dL (13.5-17.5); Mean Corpuscular HGB 29.8 pg (26.0-34.0); Mean Corpuscular HGB Conc 33.8 g/dL (31.5-36.5); Mean Corpuscular Volume 88 fL (80-100); NRBC ABSOLUTE 0.02 K/mm3 (0.00-0.02); NRBC Auto 0.7 /100 WBC (0.0-0.2); Platelet Count 150 K/mm3 (150-400); RDW Coefficient Variation 16.4 % (11.7-14.2); Red Blood Cell Count 2.28 M/mm3 (4.30-5.90); White Blood Cell Count 3.02 K/mm3 (4.00-11.30)
[2022-06-06 18:10] LABS: Mean Platelet Volume 13.7 fL (9.1-12.4)
[2022-06-06 18:29] LABS: BASOPHILS ABSOLUTE MAN 0.27 K/mm3 (0.00-0.23); BASOPHILS PERCENT MAN 9 % (0-2); EOSINOPHILS ABSOLUTE MAN 0.33 K/mm3 (0.00-0.68); EOSINOPHILS PERCENT MAN 11 % (0-6); LYMPHOCYTES PERCENT MAN 20 % (21-46); MONOCYTES ABSOLUTE MAN 0.12 K/mm3 (0.16-1.47); MONOCYTES PERCENT MAN 4 % (4-13); MYELOCYTE ABSOLUTE MAN 0.03 K/mm3 (0.00-0.00); MYELOCYTE PERCENT MAN 1 % (0-0); NEUTROPHILS ABSOLUTE MAN 1.66 K/mm3 (1.96-9.15); SEG NEUTROPHILS PERCENT MAN 55 % (41-73); TOTAL CELLS COUNTED 100
[2022-06-06 18:45] LABS: Albumin, Blood 3.4 g/dL (3.4-5.0); Albumin/Globulin Ratio 0.9 (0.8-1.8); Bilirubin, Total 0.7 mg/dL (0.1-1.0); Calcium, Blood 8.7 mg/dL (8.5-10.1); Creatinine, Blood 0.54 mg/dL (0.60-1.20); Globulin, Blood 3.6 g/dL (2.2-4.0); Potassium, Blood 4.4 mmol/L (3.5-5.5)
[2022-06-08 14:13] VITALS: BP 124/70
[2022-06-08 14:31] VITALS: BP 114/62
[2022-06-08 15:31] VITALS: BP 113/66
[2022-06-08 15:51] VITALS: BP 114/69
[2022-06-08 16:20] VITALS: BP 114/63
[2022-06-08 17:50] VITALS: BP 120/62
== END 2022-06-08 17:56 | disposition home or self-care (01) ==
LOC: ATC 00:58 → LAB FUT 06-02 17:30 → ATC 06-02 17:30 → EDSTATUS 06-02 17:30
PROVIDERS: Internal Medicine Hematology & Oncology
DX: D46.A Refractory cytopenia with multilineage dysplasia (principal); Z88.0 Allergy status to penicillin
CPT/HCPCS: 36415; 36430; 80053; 85025; 86850; 86900; 86901; 86923; 96374; J1200; J1642; J7050; P9016

== ENCOUNTER 2022-06-29 01:22 | Day surgery (SDC) | payer OTHER ==
[2022-06-29 13:03] VITALS: BP 119/74
[2022-06-29 13:25] VITALS: BP 118/67
[2022-06-29 14:40] VITALS: BP 124/65
[2022-06-29 14:56] VITALS: BP 129/70
[2022-06-29 16:05] VITALS: BP 115/68
[2022-06-29 16:28] VITALS: BP 143/72
== END 2022-06-29 23:06 | disposition home or self-care (01) ==
LOC: ATC 01:22
DX: D46.A Refractory cytopenia with multilineage dysplasia (principal)
CPT/HCPCS: 36430; 86850; 86900; 86901; 86923; J1200; J1642; J7050; P9016

== ENCOUNTER 2022-08-24 13:01 | Day surgery (SDC) | payer OTHER ==
[2022-08-23 10:55] VITALS: BP 126/82
[2022-08-23 11:25] LABS: BASOPHILS ABSOLUTE AUTO 0.07 K/mm3 (0.00-0.23); BASOPHILS PERCENT AUTO 3 % (0-2); EOSINOPHILS PERCENT AUTO 10 % (0-6); Hematocrit 20.3 % (37.0-53.0); Hemoglobin 7.1 g/dL (13.5-17.5); IMMATURE GRAN ABSOLUTE AUTO 0.03 K/mm3 (0.00-0.10); IMMATURE GRAN PERCENT AUTO 2 % (0-1); LYMPHOCYTES ABSOLUTE AUTO 0.46 K/mm3 (0.84-5.20); LYMPHOCYTES PERCENT AUTO 23 % (21-46); MONOCYTES ABSOLUTE AUTO 0.12 K/mm3 (0.16-1.47); MONOCYTES PERCENT AUTO 6 % (4-13); Mean Corpuscular HGB 30.9 pg (26.0-34.0); Mean Corpuscular Volume 88 fL (80-100); Mean Platelet Volume 12.8 fL (9.1-12.4); NEUTROPHILS ABSOLUTE AUTO 1.16 K/mm3 (1.96-9.15); NEUTROPHILS PERCENT AUTO 57 % (41-73); Platelet Count 60 K/mm3 (150-400); RDW Coefficient Variation 14.4 % (11.7-14.2); RDW Standard Deviation 46.5 fL (35.1-46.3); White Blood Cell Count 2.04 K/mm3 (4.00-11.30)
[~2022-08-24 13:01] MED LIST changes: +MORP15ER PO
[2022-08-24 13:28] VITALS: BP 126/72
[2022-08-24 13:46] VITALS: BP 117/63
[2022-08-24 14:47] VITALS: BP 115/66
[2022-08-24 15:11] VITALS: BP 121/67
== END 2022-08-24 15:15 | disposition home or self-care (01) ==
LOC: ATC 13:01
PROVIDERS: Internal Medicine Hematology & Oncology
DX: D46.A Refractory cytopenia with multilineage dysplasia (principal); C90.00 Multiple myeloma not having achieved remission
CPT/HCPCS: 36430; 36591; 85025; 86850; 86900; 86901; 86923; 96374; J1200; J1642; J7050; P9016

== ENCOUNTER 2022-08-30 11:58 | Day surgery (SDC) | payer OTHER ==
[2022-08-29 11:15] VITALS: BP 122/71
[2022-08-29 12:34] LABS: Hematocrit 20.7 % (37.0-53.0); Hemoglobin 7.1 g/dL (13.5-17.5); Mean Corpuscular HGB 30.2 pg (26.0-34.0); Mean Corpuscular HGB Conc 34.3 g/dL (31.5-36.5); Mean Corpuscular Volume 88 fL (80-100); Mean Platelet Volume 12.4 fL (9.1-12.4); RDW Coefficient Variation 14.7 % (11.7-14.2); RDW Standard Deviation 47.2 fL (35.1-46.3); Red Blood Cell Count 2.35 M/mm3 (4.30-5.90); White Blood Cell Count 2.07 K/mm3 (4.00-11.30)
[2022-08-29 13:00] LABS: Platelet Count 46 K/mm3 (150-400)
[2022-08-29 13:43] LABS: BASOPHILS ABSOLUTE MAN 0.02 K/mm3 (0.00-0.23); BASOPHILS PERCENT MAN 1 % (0-2); EOSINOPHILS ABSOLUTE MAN 0.22 K/mm3 (0.00-0.68); EOSINOPHILS PERCENT MAN 11 % (0-6); LYMPHOCYTES % ATYPICAL MANUAL 2 % (0-0); LYMPHOCYTES ABSOLUTE MAN 0.51 K/mm3 (0.84-5.20); LYMPHOCYTES PERCENT MAN 23 % (21-46); MONOCYTES ABSOLUTE MAN 0.06 K/mm3 (0.16-1.47); MONOCYTES PERCENT MAN 3 % (4-13); NEUTROPHILS ABSOLUTE MAN 1.24 K/mm3 (1.96-9.15); SEG NEUTROPHILS PERCENT MAN 60 % (41-73); TOTAL CELLS COUNTED 100
[2022-08-30 14:20] VITALS: BP 103/60
--- NOTE | 2022-08-30 14:20 | NUR ---
PT WITH FAINT INSPIRATORY CRACKLES TO RIGHT LOWER LOBE PRE TRANSFUSION.
[2022-08-30 14:40] VITALS: BP 119/63
[2022-08-30 15:40] VITALS: BP 131/68
[2022-08-30 16:08] VITALS: BP 124/64
== END 2022-08-30 16:18 | disposition home or self-care (01) ==
LOC: ATC 11:58
PROVIDERS: Internal Medicine Hematology & Oncology
DX: D46.A Refractory cytopenia with multilineage dysplasia (principal); C90.00 Multiple myeloma not having achieved remission; I25.10 Atherosclerotic heart disease of native coronary artery without angina pectoris; I10 Essential (primary) hypertension; E78.5 Hyperlipidemia, unspecified; M19.90 Unspecified osteoarthritis, unspecified site; R56.9 Unspecified convulsions; Z95.1 Presence of aortocoronary bypass graft; Z79.899 Other long term (current) drug therapy; Z88.1 Allergy status to other antibiotic agents
CPT/HCPCS: 36430; 36591; 85025; 86850; 86900; 86901; 86923; 96374; J1200; J1642; J7050; P9016

== ENCOUNTER 2022-09-08 04:47 | Day surgery (SDC) | payer OTHER ==
[2022-09-06 11:31] LABS: Hematocrit 21.8 % (37.0-53.0); Hemoglobin 7.4 g/dL (13.5-17.5); Mean Corpuscular HGB 29.6 pg (26.0-34.0); Mean Corpuscular HGB Conc 33.9 g/dL (31.5-36.5); Mean Corpuscular Volume 87 fL (80-100); RDW Coefficient Variation 13.6 % (11.7-14.2); RDW Standard Deviation 43.4 fL (35.1-46.3); White Blood Cell Count 1.68 K/mm3 (4.00-11.30)
[2022-09-06 11:55] LABS: Platelet Count 44 K/mm3 (150-400)
[2022-09-06 14:13] LABS: BASOPHILS ABSOLUTE MAN 0.03 K/mm3 (0.00-0.23); BASOPHILS PERCENT MAN 2 % (0-2); EOSINOPHILS ABSOLUTE MAN 0.16 K/mm3 (0.00-0.68); EOSINOPHILS PERCENT MAN 10 % (0-6); LYMPHOCYTES % ATYPICAL MANUAL 2 % (0-0); LYMPHOCYTES ABSOLUTE MAN 0.47 K/mm3 (0.84-5.20); LYMPHOCYTES PERCENT MAN 26 % (21-46); MONOCYTES ABSOLUTE MAN 0.03 K/mm3 (0.16-1.47); MONOCYTES PERCENT MAN 2 % (4-13); NEUTROPHILS ABSOLUTE MAN 0.97 K/mm3 (1.96-9.15); SEG NEUTROPHILS PERCENT MAN 58 % (41-73); TOTAL CELLS COUNTED 50
[2022-09-08 13:37] VITALS: BP 132/83
[2022-09-08 14:20] VITALS: BP 112/64
[2022-09-08 15:14] VITALS: BP 119/84
--- NOTE | 2022-09-14 15:01 | NUR ---
LATE ENTRY: 09/06/2022 1055: MEDIPORT ACCESSED FOR BLOOD DRAW. POWER PORT, USED STANDARD CRISTINA NEEDLE 20 GA, 3/4 INCH. POSITIVE BLOOD RETURN, LAB DRAWN. FLUSHED WITH 20CC NS AND HEPARIN 500 UNITS. D/C'D NEEDLE INTACT. BANDAGE PLACED. PT TOLERATED WELL. NO CHANGES IN MEDS OR ALLERGIES. PT AND HIS VERBALIZED UNDERSTANDING OF PROCEDURE AND NEED TO KEEP ARMBAND ON IN CASE OF NEEDED BLOOD TRANSFUSION. DISCHARGED FROM CARE AT. 1103
== END 2022-09-08 15:25 | disposition home or self-care (01) ==
LOC: ATC 04:47
PROVIDERS: Internal Medicine Hematology & Oncology
DX: D46.A Refractory cytopenia with multilineage dysplasia (principal); C90.00 Multiple myeloma not having achieved remission
CPT/HCPCS: 36430; 36591; 85025; 86850; 86900; 86901; 86923; 96374; J1200; J1642; J7050; P9016

== ENCOUNTER 2022-09-21 10:22 | Day surgery (SDC) | payer OTHER ==
[2022-09-20 09:56] VITALS: BP 108/69
[2022-09-20 10:31] LABS: Hematocrit 18.7 % (37.0-53.0); Hemoglobin 6.2 g/dL (13.5-17.5); Mean Corpuscular HGB 29.5 pg (26.0-34.0); Mean Corpuscular HGB Conc 33.2 g/dL (31.5-36.5); Mean Corpuscular Volume 89 fL (80-100); RDW Coefficient Variation 13.8 % (11.7-14.2); White Blood Cell Count 1.52 K/mm3 (4.00-11.30)
[2022-09-20 10:42] LABS: Mean Platelet Volume 13.2 fL (9.1-12.4); Platelet Count 36 K/mm3 (150-400)
[2022-09-20 11:18] LABS: BAND PERCENT MAN 1 % (0-8); BASOPHILS ABSOLUTE MAN 0.03 K/mm3 (0.00-0.23); BASOPHILS PERCENT MAN 2 % (0-2); EOSINOPHILS ABSOLUTE MAN 0.15 K/mm3 (0.00-0.68); EOSINOPHILS PERCENT MAN 10 % (0-6); LYMPHOCYTES ABSOLUTE MAN 0.34 K/mm3 (0.84-5.20); LYMPHOCYTES PERCENT MAN 23 % (21-46); MONOCYTES PERCENT MAN 0 % (4-13); NEUTROPHILS ABSOLUTE MAN 0.98 K/mm3 (1.96-9.15); SEG NEUTROPHILS PERCENT MAN 64 % (41-73); TOTAL CELLS COUNTED 100
[2022-09-21] VITALS (7 sets, daily range): BP systolic 100–122; BP diastolic 61–76
== END 2022-09-21 16:46 | disposition home or self-care (01) ==
LOC: ATC 10:22
PROVIDERS: Internal Medicine Hematology & Oncology
DX: D46.A Refractory cytopenia with multilineage dysplasia (principal); I25.10 Atherosclerotic heart disease of native coronary artery without angina pectoris; I10 Essential (primary) hypertension; E78.5 Hyperlipidemia, unspecified; Z95.1 Presence of aortocoronary bypass graft
CPT/HCPCS: 36430; 36591; 85025; 86850; 86900; 86901; 86923; 96374; J1200; J1642; J7050; P9016

== ENCOUNTER 2022-09-26 01:51 | Day surgery (SDC) | payer OTHER ==
[2022-09-26 10:48] VITALS: BP 125/77
[2022-09-26 11:11] LABS: Mean Corpuscular HGB 30.5 pg (26.0-34.0); Mean Corpuscular HGB Conc 34.8 g/dL (31.5-36.5); Mean Corpuscular Volume 88 fL (80-100); RDW Coefficient Variation 13.2 % (11.7-14.2); RDW Standard Deviation 42.6 fL (35.1-46.3); Red Blood Cell Count 2.62 M/mm3 (4.30-5.90); White Blood Cell Count 1.67 K/mm3 (4.00-11.30)
[2022-09-26 11:24] LABS: Platelet Count 31 K/mm3 (150-400)
[2022-09-26 11:49] LABS: BAND PERCENT MAN 4 % (0-8); BASOPHILS PERCENT MAN 0 % (0-2); EOSINOPHILS PERCENT MAN 0 % (0-6); LYMPHOCYTES PERCENT MAN 30 % (21-46); MONOCYTES PERCENT MAN 0 % (4-13); MYELOCYTE ABSOLUTE MAN 0.03 K/mm3 (0.00-0.00); MYELOCYTE PERCENT MAN 2 % (0-0); NEUTROPHILS ABSOLUTE MAN 1.13 K/mm3 (1.96-9.15); SEG NEUTROPHILS PERCENT MAN 64 % (41-73); TOTAL CELLS COUNTED 50
== END 2022-09-26 10:45 | disposition home or self-care (01) ==
LOC: ATC 01:51
PROVIDERS: Internal Medicine Hematology & Oncology
DX: D46.A Refractory cytopenia with multilineage dysplasia (principal); I25.10 Atherosclerotic heart disease of native coronary artery without angina pectoris; I10 Essential (primary) hypertension; E78.5 Hyperlipidemia, unspecified; M19.90 Unspecified osteoarthritis, unspecified site; Z88.1 Allergy status to other antibiotic agents
CPT/HCPCS: 36591; 85025; J1642

== ENCOUNTER 2022-09-27 15:42 | Day surgery (SDC) | payer OTHER ==
[2022-09-27 16:13] VITALS: BP 121/86
== END 2022-09-27 16:08 | disposition home or self-care (01) ==
LOC: ATC 15:42
DX: M1A Chronic gout (principal); D46.A Refractory cytopenia with multilineage dysplasia; I25.10 Atherosclerotic heart disease of native coronary artery without angina pectoris; I10 Essential (primary) hypertension; E78.5 Hyperlipidemia, unspecified; M19.90 Unspecified osteoarthritis, unspecified site; Z95.1 Presence of aortocoronary bypass graft; Z88.1 Allergy status to other antibiotic agents
CPT/HCPCS: 36591; 84550; J1642

== ENCOUNTER 2022-10-05 03:47 | Day surgery (SDC) | payer OTHER ==
[2022-10-03 10:49] VITALS: BP 128/85
[2022-10-03 12:11] LABS: Hematocrit 20.4 % (37.0-53.0); Hemoglobin 7.1 g/dL (13.5-17.5); Mean Corpuscular HGB 30.6 pg (26.0-34.0); Mean Corpuscular HGB Conc 34.8 g/dL (31.5-36.5); Mean Corpuscular Volume 88 fL (80-100); RDW Coefficient Variation 13.2 % (11.7-14.2); RDW Standard Deviation 42.5 fL (35.1-46.3); Red Blood Cell Count 2.32 M/mm3 (4.30-5.90); White Blood Cell Count 1.88 K/mm3 (4.00-11.30)
[2022-10-03 12:25] LABS: Platelet Count 50 K/mm3 (150-400)
[2022-10-03 12:43] LABS: BAND PERCENT MAN 4 % (0-8); BASOPHILS PERCENT MAN 0 % (0-2); EOSINOPHILS ABSOLUTE MAN 0.03 K/mm3 (0.00-0.68); EOSINOPHILS PERCENT MAN 2 % (0-6); LYMPHOCYTES ABSOLUTE MAN 0.15 K/mm3 (0.84-5.20); LYMPHOCYTES PERCENT MAN 8 % (21-46); METAMYELOCYTE ABSOLUTE MAN 0.03 K/mm3 (0.00-0.00); METAMYELOCYTE PERCENT MAN 2 % (0-0); MONOCYTES PERCENT MAN 0 % (4-13); NEUTROPHILS ABSOLUTE MAN 1.65 K/mm3 (1.96-9.15); SEG NEUTROPHILS PERCENT MAN 84 % (41-73); TOTAL CELLS COUNTED 50
[2022-10-05 13:37] VITALS: BP 108/89
[2022-10-05 13:53] VITALS: BP 108/69
[2022-10-05 15:00] VITALS: BP 119/68
[2022-10-05 15:21] VITALS: BP 103/71
[2022-10-05 16:20] VITALS: BP 133/75
[2022-10-05 16:34] VITALS: BP 116/65
== END 2022-10-05 16:37 | disposition home or self-care (01) ==
LOC: ATC 03:47
PROVIDERS: Internal Medicine Hematology & Oncology
DX: D46.A Refractory cytopenia with multilineage dysplasia (principal); I25.10 Atherosclerotic heart disease of native coronary artery without angina pectoris; E78.5 Hyperlipidemia, unspecified; I10 Essential (primary) hypertension
CPT/HCPCS: 36430; 36591; 85025; 86850; 86900; 86901; 86923; 96374; J1200; J1642; J7050; P9016

== ENCOUNTER 2022-10-10 02:15 | Day surgery (SDC) | payer OTHER ==
[2022-10-10 10:26] VITALS: BP 127/87
[2022-10-10 11:05] LABS: BASOPHILS ABSOLUTE AUTO 0.02 K/mm3 (0.00-0.23); BASOPHILS PERCENT AUTO 1 % (0-2); EOSINOPHILS ABSOLUTE AUTO 0.02 K/mm3 (0.00-0.68); EOSINOPHILS PERCENT AUTO 1 % (0-6); Hematocrit 24.5 % (37.0-53.0); Hemoglobin 8.3 g/dL (13.5-17.5); IMMATURE GRAN ABSOLUTE AUTO 0.03 K/mm3 (0.00-0.10); IMMATURE GRAN PERCENT AUTO 2 % (0-1); LYMPHOCYTES ABSOLUTE AUTO 0.24 K/mm3 (0.84-5.20); LYMPHOCYTES PERCENT AUTO 13 % (21-46); MONOCYTES ABSOLUTE AUTO 0.15 K/mm3 (0.16-1.47); MONOCYTES PERCENT AUTO 8 % (4-13); Mean Corpuscular HGB 29.9 pg (26.0-34.0); Mean Corpuscular HGB Conc 33.9 g/dL (31.5-36.5); Mean Corpuscular Volume 88 fL (80-100); NEUTROPHILS ABSOLUTE AUTO 1.39 K/mm3 (1.96-9.15); NEUTROPHILS PERCENT AUTO 75 % (41-73); RDW Coefficient Variation 13.6 % (11.7-14.2); RDW Standard Deviation 44.2 fL (35.1-46.3); Red Blood Cell Count 2.78 M/mm3 (4.30-5.90); White Blood Cell Count 1.85 K/mm3 (4.00-11.30)
[2022-10-10 11:15] LABS: Platelet Count 25 K/mm3 (150-400)
== END 2022-10-10 10:37 | disposition home or self-care (01) ==
LOC: ATC 02:15
PROVIDERS: Internal Medicine Hematology & Oncology
DX: D46.A Refractory cytopenia with multilineage dysplasia (principal); I25.10 Atherosclerotic heart disease of native coronary artery without angina pectoris; I10 Essential (primary) hypertension; E78.5 Hyperlipidemia, unspecified; M19.90 Unspecified osteoarthritis, unspecified site; C90.00 Multiple myeloma not having achieved remission; Z95.1 Presence of aortocoronary bypass graft
CPT/HCPCS: 36591; 85025; J1642

== ENCOUNTER 2022-10-19 13:55 | Day surgery (SDC) | payer OTHER ==
[2022-10-17 11:25] VITALS: BP 109/63
[2022-10-17 11:48] LABS: BASOPHILS ABSOLUTE AUTO 0.02 K/mm3 (0.00-0.23); BASOPHILS PERCENT AUTO 1 % (0-2); EOSINOPHILS ABSOLUTE AUTO 0.03 K/mm3 (0.00-0.68); EOSINOPHILS PERCENT AUTO 1 % (0-6); Mean Corpuscular HGB 29.6 pg (26.0-34.0); Mean Corpuscular HGB Conc 33.3 g/dL (31.5-36.5); Mean Corpuscular Volume 89 fL (80-100); RDW Coefficient Variation 13.8 % (11.7-14.2); RDW Standard Deviation 44.8 fL (35.1-46.3); Red Blood Cell Count 1.79 M/mm3 (4.30-5.90); White Blood Cell Count 2.54 K/mm3 (4.00-11.30)
[2022-10-17 11:53] LABS: IMMATURE GRAN ABSOLUTE AUTO 0.03 K/mm3 (0.00-0.10); IMMATURE GRAN PERCENT AUTO 1 % (0-1); LYMPHOCYTES ABSOLUTE AUTO 0.25 K/mm3 (0.84-5.20); LYMPHOCYTES PERCENT AUTO 10 % (21-46); MONOCYTES PERCENT AUTO 4 % (4-13); Mean Platelet Volume 13.8 fL (9.1-12.4); NEUTROPHILS ABSOLUTE AUTO 2.11 K/mm3 (1.96-9.15); NEUTROPHILS PERCENT AUTO 83 % (41-73)
[2022-10-17 11:54] LABS: Hematocrit 15.9 % (37.0-53.0); Hemoglobin 5.3 g/dL (13.5-17.5); Platelet Count 17 K/mm3 (150-400)
[2022-10-17 12:13] LABS: BAND PERCENT MAN 1 % (0-8); BASOPHILS PERCENT MAN 0 % (0-2); EOSINOPHILS PERCENT MAN 0 % (0-6); LYMPHOCYTES ABSOLUTE MAN 0.27 K/mm3 (0.84-5.20); LYMPHOCYTES PERCENT MAN 11 % (21-46); MONOCYTES ABSOLUTE MAN 0.02 K/mm3 (0.16-1.47); MONOCYTES PERCENT MAN 1 % (4-13); NEUTROPHILS ABSOLUTE MAN 2.23 K/mm3 (1.96-9.15); SEG NEUTROPHILS PERCENT MAN 87 % (41-73); TOTAL CELLS COUNTED 100
[2022-10-19 14:11] VITALS: BP 76/49
[2022-10-19 14:29] VITALS: BP 81/72
[2022-10-19 15:34] VITALS: BP 132/73
[2022-10-19 15:59] VITALS: BP 131/66
[2022-10-19 17:14] VITALS: BP 114/61
== END 2022-10-19 17:20 | disposition home or self-care (01) ==
LOC: ATC 13:55
PROVIDERS: Internal Medicine Hematology & Oncology
DX: D46.A Refractory cytopenia with multilineage dysplasia (principal); I25.10 Atherosclerotic heart disease of native coronary artery without angina pectoris; I10 Essential (primary) hypertension; E78.5 Hyperlipidemia, unspecified; Z95.1 Presence of aortocoronary bypass graft; Z88.0 Allergy status to penicillin
CPT/HCPCS: 36430; 36591; 85025; 86850; 86900; 86901; 86923; 96374; J1200; J1642; J7050; P9016

== ENCOUNTER 2022-10-25 10:29 | Day surgery (SDC) | payer OTHER ==
[2022-10-24 10:46] VITALS: BP 108/73
[2022-10-24 11:28] LABS: Mean Corpuscular HGB 29.6 pg (26.0-34.0); Mean Corpuscular HGB Conc 33.7 g/dL (31.5-36.5); Mean Corpuscular Volume 88 fL (80-100); RDW Coefficient Variation 14.1 % (11.7-14.2); RDW Standard Deviation 44.9 fL (35.1-46.3); Red Blood Cell Count 1.96 M/mm3 (4.30-5.90); White Blood Cell Count 1.58 K/mm3 (4.00-11.30)
[2022-10-24 12:13] LABS: Hemoglobin 5.8 g/dL (13.5-17.5); Mean Platelet Volume 13.2 fL (9.1-12.4)
[2022-10-24 12:14] LABS: Hematocrit 17.2 % (37.0-53.0); Platelet Count 22 K/mm3 (150-400)
[2022-10-24 12:34] LABS: BAND PERCENT MAN 2 % (0-8); BASOPHILS PERCENT MAN 0 % (0-2); EOSINOPHILS ABSOLUTE MAN 0.03 K/mm3 (0.00-0.68); EOSINOPHILS PERCENT MAN 2 % (0-6); LYMPHOCYTES ABSOLUTE MAN 0.25 K/mm3 (0.84-5.20); LYMPHOCYTES PERCENT MAN 16 % (21-46); MONOCYTES ABSOLUTE MAN 0.06 K/mm3 (0.16-1.47); MONOCYTES PERCENT MAN 4 % (4-13); NEUTROPHILS ABSOLUTE MAN 1.23 K/mm3 (1.96-9.15); SEG NEUTROPHILS PERCENT MAN 76 % (41-73); TOTAL CELLS COUNTED 50
[2022-10-25 13:35] VITALS: BP 113/62
[2022-10-25 13:50] VITALS: BP 101/58
[2022-10-25 15:36] VITALS: BP 115/69
[2022-10-25 16:55] VITALS: BP 167/70
== END 2022-10-25 23:00 ==
LOC: ATC 10:29
PROVIDERS: Internal Medicine Hematology & Oncology
DX: D46.A Refractory cytopenia with multilineage dysplasia (principal); I25.10 Atherosclerotic heart disease of native coronary artery without angina pectoris; I10 Essential (primary) hypertension; E78.5 Hyperlipidemia, unspecified; M19.90 Unspecified osteoarthritis, unspecified site; Z95.1 Presence of aortocoronary bypass graft; Z88.0 Allergy status to penicillin
CPT/HCPCS: 36430; 36591; 85025; 86850; 86900; 86901; 86923; J1200; J1642; J7050; P9016

== ENCOUNTER 2022-11-01 04:20 | Day surgery (SDC) | payer OTHER ==
[2022-10-31 11:31] VITALS: BP 120/75
[2022-10-31 11:53] LABS: Hematocrit 19.7 % (37.0-53.0); Hemoglobin 6.7 g/dL (13.5-17.5); Mean Corpuscular HGB 29.8 pg (26.0-34.0); Mean Corpuscular Volume 88 fL (80-100); Mean Platelet Volume 12.8 fL (9.1-12.4); RDW Coefficient Variation 13.2 % (11.7-14.2); RDW Standard Deviation 42.3 fL (35.1-46.3); Red Blood Cell Count 2.25 M/mm3 (4.30-5.90); White Blood Cell Count 1.34 K/mm3 (4.00-11.30)
[2022-10-31 12:05] LABS: Platelet Count 35 K/mm3 (150-400)
[2022-10-31 12:18] LABS: BASOPHILS PERCENT MAN 0 % (0-2); EOSINOPHILS ABSOLUTE MAN 0.05 K/mm3 (0.00-0.68); EOSINOPHILS PERCENT MAN 4 % (0-6); LYMPHOCYTES PERCENT MAN 30 % (21-46); MONOCYTES PERCENT MAN 0 % (4-13); NEUTROPHILS ABSOLUTE MAN 0.88 K/mm3 (1.96-9.15); SEG NEUTROPHILS PERCENT MAN 66 % (41-73); TOTAL CELLS COUNTED 50
[2022-11-01] VITALS (7 sets, daily range): BP systolic 122–168; BP diastolic 70–84
== END 2022-11-01 17:04 | disposition home or self-care (01) ==
LOC: ATC 04:20
PROVIDERS: Internal Medicine Hematology & Oncology
DX: D46.A Refractory cytopenia with multilineage dysplasia (principal); I25.10 Atherosclerotic heart disease of native coronary artery without angina pectoris; I10 Essential (primary) hypertension; E78.5 Hyperlipidemia, unspecified
CPT/HCPCS: 36430; 36591; 85025; 86850; 86900; 86901; 86923; 96374; J1200; J1642; J7050; P9016

== ENCOUNTER 2022-11-28 02:28 | Day surgery (SDC) | payer OTHER ==
[2022-11-28 11:31] VITALS: BP 119/83
[2022-11-28 11:37] LABS: Hematocrit 24.7 % (37.0-53.0); Hemoglobin 7.9 g/dL (13.5-17.5); Mean Corpuscular HGB 27.2 pg (26.0-34.0); Mean Corpuscular Volume 85 fL (80-100); Platelet Count 91 K/mm3 (150-400); RDW Coefficient Variation 14.6 % (11.7-14.2); RDW Standard Deviation 45.5 fL (35.1-46.3); White Blood Cell Count 1.54 K/mm3 (4.00-11.30)
[2022-11-28 11:48] LABS: Mean Platelet Volume 13.5 fL (9.1-12.4)
[2022-11-28 12:29] LABS: BASOPHILS PERCENT MAN 0 % (0-2); EOSINOPHILS PERCENT MAN 0 % (0-6); LYMPHOCYTES ABSOLUTE MAN 0.18 K/mm3 (0.84-5.20); LYMPHOCYTES PERCENT MAN 12 % (21-46); MONOCYTES ABSOLUTE MAN 0.03 K/mm3 (0.16-1.47); MONOCYTES PERCENT MAN 2 % (4-13); NEUTROPHILS ABSOLUTE MAN 1.32 K/mm3 (1.96-9.15); SEG NEUTROPHILS PERCENT MAN 86 % (41-73); TOTAL CELLS COUNTED 50
== END 2022-11-28 11:10 | disposition home or self-care (01) ==
LOC: ATC 02:28
PROVIDERS: Internal Medicine Hematology & Oncology
DX: D46.A Refractory cytopenia with multilineage dysplasia (principal); I25.10 Atherosclerotic heart disease of native coronary artery without angina pectoris; E78.5 Hyperlipidemia, unspecified; I10 Essential (primary) hypertension; Z95.1 Presence of aortocoronary bypass graft
CPT/HCPCS: 36591; 85025; J1642

== ENCOUNTER 2022-12-07 03:19 | Day surgery (SDC) | payer OTHER ==
[2022-12-05 11:39] VITALS: BP 87/59
[2022-12-05 11:50] LABS: Hematocrit 18.4 % (37.0-53.0); Mean Corpuscular HGB 27.2 pg (26.0-34.0); Mean Corpuscular HGB Conc 32.1 g/dL (31.5-36.5); Mean Corpuscular Volume 85 fL (80-100); Platelet Count 60 K/mm3 (150-400); RDW Coefficient Variation 14.9 % (11.7-14.2); Red Blood Cell Count 2.17 M/mm3 (4.30-5.90); White Blood Cell Count 2.64 K/mm3 (4.00-11.30)
[2022-12-05 11:59] LABS: Hemoglobin 5.9 g/dL (13.5-17.5)
[2022-12-05 12:22] LABS: BASOPHILS PERCENT MAN 4 % (0-2); EOSINOPHILS ABSOLUTE MAN 0.02 K/mm3 (0.00-0.68); EOSINOPHILS PERCENT MAN 1 % (0-6); LYMPHOCYTES ABSOLUTE MAN 0.34 K/mm3 (0.84-5.20); LYMPHOCYTES PERCENT MAN 13 % (21-46); MONOCYTES ABSOLUTE MAN 0.02 K/mm3 (0.16-1.47); MONOCYTES PERCENT MAN 1 % (4-13); NEUTROPHILS ABSOLUTE MAN 2.13 K/mm3 (1.96-9.15); SEG NEUTROPHILS PERCENT MAN 81 % (41-73); TOTAL CELLS COUNTED 100
[2022-12-07 07:59] VITALS: BP 100/64
[2022-12-07 08:15] VITALS: BP 131/73
[2022-12-07 09:32] VITALS: BP 111/67
[2022-12-07 09:58] VITALS: BP 103/66
[2022-12-07 10:58] VITALS: BP 115/80
[2022-12-07 11:17] VITALS: BP 114/65
== END 2022-12-07 11:22 | disposition home or self-care (01) ==
LOC: ATC 03:19
PROVIDERS: Internal Medicine Hematology & Oncology
DX: D46.A Refractory cytopenia with multilineage dysplasia (principal); I25.10 Atherosclerotic heart disease of native coronary artery without angina pectoris; I10 Essential (primary) hypertension; E78.5 Hyperlipidemia, unspecified; Z95.1 Presence of aortocoronary bypass graft; Z88.1 Allergy status to other antibiotic agents
CPT/HCPCS: 36430; 36591; 85025; 86850; 86900; 86901; 86923; 96374; J1200; J1642; J7050; P9016

== ENCOUNTER 2022-12-12 00:18 | Day surgery (SDC) | payer OTHER ==
[2022-12-12 11:45] VITALS: BP 114/77
[2022-12-12 12:24] LABS: BASOPHILS ABSOLUTE AUTO 0.09 K/mm3 (0.00-0.23); BASOPHILS PERCENT AUTO 3 % (0-2); EOSINOPHILS ABSOLUTE AUTO 0.16 K/mm3 (0.00-0.68); EOSINOPHILS PERCENT AUTO 6 % (0-6); Hematocrit 24.3 % (37.0-53.0); IMMATURE GRAN ABSOLUTE AUTO 0.08 K/mm3 (0.00-0.10); IMMATURE GRAN PERCENT AUTO 3 % (0-1); LYMPHOCYTES ABSOLUTE AUTO 0.27 K/mm3 (0.84-5.20); LYMPHOCYTES PERCENT AUTO 9 % (21-46); MONOCYTES ABSOLUTE AUTO 0.12 K/mm3 (0.16-1.47); MONOCYTES PERCENT AUTO 4 % (4-13); Mean Corpuscular HGB 28.1 pg (26.0-34.0); Mean Corpuscular HGB Conc 32.9 g/dL (31.5-36.5); Mean Corpuscular Volume 85 fL (80-100); NEUTROPHILS PERCENT AUTO 75 % (41-73); Platelet Count 89 K/mm3 (150-400); RDW Coefficient Variation 14.8 % (11.7-14.2); RDW Standard Deviation 46.5 fL (35.1-46.3); Red Blood Cell Count 2.85 M/mm3 (4.30-5.90); White Blood Cell Count 2.92 K/mm3 (4.00-11.30)
[2022-12-12 12:49] LABS: BASOPHILS PERCENT MAN 0 % (0-2); EOSINOPHILS ABSOLUTE MAN 0.11 K/mm3 (0.00-0.68); EOSINOPHILS PERCENT MAN 4 % (0-6); LYMPHOCYTES ABSOLUTE MAN 0.32 K/mm3 (0.84-5.20); LYMPHOCYTES PERCENT MAN 11 % (21-46); MONOCYTES ABSOLUTE MAN 0.14 K/mm3 (0.16-1.47); MONOCYTES PERCENT MAN 5 % (4-13); NEUTROPHILS ABSOLUTE MAN 2.33 K/mm3 (1.96-9.15); SEG NEUTROPHILS PERCENT MAN 80 % (41-73); TOTAL CELLS COUNTED 100
== END 2022-12-12 11:50 | disposition home or self-care (01) ==
LOC: ATC 00:18
PROVIDERS: Internal Medicine Hematology & Oncology
DX: D46.A Refractory cytopenia with multilineage dysplasia (principal); I25.10 Atherosclerotic heart disease of native coronary artery without angina pectoris; I10 Essential (primary) hypertension; E78.5 Hyperlipidemia, unspecified; M19.90 Unspecified osteoarthritis, unspecified site
CPT/HCPCS: 85025; J1642

== ENCOUNTER 2022-12-21 03:52 | Day surgery (SDC) | payer OTHER ==
[2022-12-19 14:40] VITALS: BP 112/76
[2022-12-19 15:18] LABS: BASOPHILS ABSOLUTE AUTO 0.06 K/mm3 (0.00-0.23); BASOPHILS PERCENT AUTO 1 % (0-2); EOSINOPHILS ABSOLUTE AUTO 0.04 K/mm3 (0.00-0.68); EOSINOPHILS PERCENT AUTO 1 % (0-6); Hematocrit 19.9 % (37.0-53.0); Hemoglobin 6.4 g/dL (13.5-17.5); IMMATURE GRAN ABSOLUTE AUTO 0.08 K/mm3 (0.00-0.10); IMMATURE GRAN PERCENT AUTO 2 % (0-1); LYMPHOCYTES ABSOLUTE AUTO 0.39 K/mm3 (0.84-5.20); LYMPHOCYTES PERCENT AUTO 9 % (21-46); MONOCYTES ABSOLUTE AUTO 0.17 K/mm3 (0.16-1.47); MONOCYTES PERCENT AUTO 4 % (4-13); Mean Corpuscular HGB 27.8 pg (26.0-34.0); Mean Corpuscular HGB Conc 32.2 g/dL (31.5-36.5); Mean Corpuscular Volume 87 fL (80-100); NEUTROPHILS PERCENT AUTO 84 % (41-73); Platelet Count 151 K/mm3 (150-400); RDW Coefficient Variation 15.5 % (11.7-14.2); RDW Standard Deviation 48.9 fL (35.1-46.3); White Blood Cell Count 4.54 K/mm3 (4.00-11.30)
[2022-12-19 15:23] LABS: Mean Platelet Volume 13.4 fL (9.1-12.4)
[2022-12-19 15:46] LABS: Creatinine, Blood 0.61 mg/dL (0.60-1.20)
[2022-12-19 15:56] LABS: Platelet Function Col/Epi 146 sec (75-165)
[2022-12-21 13:38] VITALS: BP 125/87
[2022-12-21 13:54] VITALS: BP 118/71
[2022-12-21] MEDS ORDERED: Flomax0.4 MG PO (14:27)
[2022-12-21 14:54] VITALS: BP 107/71
[2022-12-21 15:10] VITALS: BP 107/71
[2022-12-21 15:26] VITALS: BP 112/65
[2022-12-21 16:57] VITALS: BP 115/56
--- NOTE | 2022-12-22 08:47 | NUR ---
BOLA WASHINGTON ASSISTED PT YESTERDAY, HE WAS D/C APPROX AT 1735, MEDIPORT FLUSHED PER PROTOCOL
== END 2022-12-21 22:44 | disposition home or self-care (01) ==
LOC: ATC 03:52
PROVIDERS: Internal Medicine Hematology & Oncology; Physician Assistant Medical
DX: D46.A Refractory cytopenia with multilineage dysplasia (principal); I10 Essential (primary) hypertension; I25.10 Atherosclerotic heart disease of native coronary artery without angina pectoris; E78.5 Hyperlipidemia, unspecified
CPT/HCPCS: 36430; 36591; 82565; 83721; 84403; 84484; 85025; 85576; 86850; 86900; 86901; 86923; 96374; J1200; J1642; J7050; P9016

== ENCOUNTER 2022-12-26 05:53 | Day surgery (SDC) | payer OTHER ==
[~2022-12-26 05:53] MED LIST changes: +Flomax0.4 MG PO
[2022-12-26 11:13] VITALS: BP 107/67
[2022-12-26 11:46] LABS: Hematocrit 26.2 % (37.0-53.0); Hemoglobin 8.4 g/dL (13.5-17.5); Mean Corpuscular HGB 27.7 pg (26.0-34.0); Mean Corpuscular HGB Conc 32.1 g/dL (31.5-36.5); Mean Corpuscular Volume 87 fL (80-100); Platelet Count 99 K/mm3 (150-400); RDW Coefficient Variation 15.4 % (11.7-14.2); RDW Standard Deviation 48.8 fL (35.1-46.3); Red Blood Cell Count 3.03 M/mm3 (4.30-5.90); White Blood Cell Count 3.67 K/mm3 (4.00-11.30)
[2022-12-26 12:04] LABS: BASOPHILS ABSOLUTE MAN 0.07 K/mm3 (0.00-0.23); BASOPHILS PERCENT MAN 2 % (0-2); EOSINOPHILS ABSOLUTE MAN 0.07 K/mm3 (0.00-0.68); EOSINOPHILS PERCENT MAN 2 % (0-6); LYMPHOCYTES ABSOLUTE MAN 0.33 K/mm3 (0.84-5.20); LYMPHOCYTES PERCENT MAN 9 % (21-46); MONOCYTES ABSOLUTE MAN 0.03 K/mm3 (0.16-1.47); MONOCYTES PERCENT MAN 1 % (4-13); NEUTROPHILS ABSOLUTE MAN 3.15 K/mm3 (1.96-9.15); SEG NEUTROPHILS PERCENT MAN 86 % (41-73); TOTAL CELLS COUNTED 100
== END 2022-12-26 11:15 | disposition home or self-care (01) ==
LOC: ATC 05:53
PROVIDERS: Physician Assistant Medical
DX: D46.A Refractory cytopenia with multilineage dysplasia (principal); I25.10 Atherosclerotic heart disease of native coronary artery without angina pectoris; I10 Essential (primary) hypertension; E78.5 Hyperlipidemia, unspecified; Z95.1 Presence of aortocoronary bypass graft
CPT/HCPCS: 36591; 84484; 85025; J1642

== ENCOUNTER 2023-01-02 02:00 | Day surgery (SDC) | payer OTHER ==
[2023-01-02 10:35] VITALS: BP 142/65
[2023-01-02 11:17] LABS: Hematocrit 23.1 % (37.0-53.0); Hemoglobin 7.5 g/dL (13.5-17.5); Mean Corpuscular HGB 27.7 pg (26.0-34.0); Mean Corpuscular HGB Conc 32.5 g/dL (31.5-36.5); Mean Corpuscular Volume 85 fL (80-100); Platelet Count 125 K/mm3 (150-400); RDW Coefficient Variation 15.7 % (11.7-14.2); RDW Standard Deviation 47.9 fL (35.1-46.3); Red Blood Cell Count 2.71 M/mm3 (4.30-5.90); White Blood Cell Count 5.02 K/mm3 (4.00-11.30)
[2023-01-02 11:29] LABS: Mean Platelet Volume 13.1 fL (9.1-12.4)
[2023-01-02 12:13] LABS: BAND PERCENT MAN 1 % (0-8); BASOPHILS PERCENT MAN 2 % (0-2); EOSINOPHILS ABSOLUTE MAN 0.25 K/mm3 (0.00-0.68); EOSINOPHILS PERCENT MAN 5 % (0-6); LYMPHOCYTES ABSOLUTE MAN 0.25 K/mm3 (0.84-5.20); LYMPHOCYTES PERCENT MAN 5 % (21-46); MONOCYTES PERCENT MAN 0 % (4-13); NEUTROPHILS ABSOLUTE MAN 4.41 K/mm3 (1.96-9.15); SEG NEUTROPHILS PERCENT MAN 87 % (41-73); TOTAL CELLS COUNTED 100
[2023-01-04 14:41] VITALS: BP 98/50
[2023-01-04 15:05] VITALS: BP 98/52
[2023-01-04 16:19] VITALS: BP 92/56
--- NOTE | 2023-01-04 17:20 | NUR ---
DR BORGES OFFICE CALLED AND INFORMED PT ARRIVED WITH TEMP 101.6. OK TO PROCEED WITH TODAY'S BLOOD TRANSFUSION AND GIVE 650MG OF TYLENOL PER YANI ON BEHALF OF DR PEREZ DR BORGES WAS OUT OF THE OFFICE.
== END 2023-01-04 17:00 | disposition home or self-care (01) ==
LOC: ATC 02:15
PROVIDERS: Internal Medicine Hematology & Oncology
DX: D46.A Refractory cytopenia with multilineage dysplasia (principal); E78.5 Hyperlipidemia, unspecified; I10 Essential (primary) hypertension; I25.10 Atherosclerotic heart disease of native coronary artery without angina pectoris; Z95.1 Presence of aortocoronary bypass graft
CPT/HCPCS: 36430; 36591; 85025; 86850; 86900; 86901; 86923; 96374; A9270; J1200; J1642; J7050; P9016

== ENCOUNTER 2023-01-04 05:52 | Day surgery (SDC) | payer OTHER | END 2023-01-04 22:51 | disposition home or self-care (01) | LOC: CT 05:52 | DX: N40.1 Benign prostatic hyperplasia with lower urinary tract symptoms (principal); N32.1 Vesicointestinal fistula; R19.09 Other intra-abdominal and pelvic swelling, mass and lump; I77.72 Dissection of iliac artery; K57.30 Diverticulosis of large intestine without perforation or abscess without bleeding; K22.89 Other specified disease of esophagus | CPT/HCPCS: 74177; Q9967 ==

== ENCOUNTER 2023-01-08 01:55 | Day surgery (SDC) | payer OTHER ==
[2023-01-08 11:02] VITALS: BP 120/85
[2023-01-08 11:41] LABS: Hematocrit 25.6 % (37.0-53.0); Hemoglobin 8.3 g/dL (13.5-17.5); Mean Corpuscular HGB 28.5 pg (26.0-34.0); Mean Corpuscular HGB Conc 32.4 g/dL (31.5-36.5); Mean Corpuscular Volume 88 fL (80-100); Platelet Count 154 K/mm3 (150-400); RDW Coefficient Variation 16.5 % (11.7-14.2); RDW Standard Deviation 51.8 fL (35.1-46.3); Red Blood Cell Count 2.91 M/mm3 (4.30-5.90); White Blood Cell Count 4.22 K/mm3 (4.00-11.30)
[2023-01-08 12:08] LABS: BASOPHILS ABSOLUTE MAN 0.08 K/mm3 (0.00-0.23); BASOPHILS PERCENT MAN 2 % (0-2); EOSINOPHILS ABSOLUTE MAN 0.08 K/mm3 (0.00-0.68); EOSINOPHILS PERCENT MAN 2 % (0-6); LYMPHOCYTES ABSOLUTE MAN 0.21 K/mm3 (0.84-5.20); LYMPHOCYTES PERCENT MAN 5 % (21-46); MONOCYTES ABSOLUTE MAN 0.08 K/mm3 (0.16-1.47); MONOCYTES PERCENT MAN 2 % (4-13); NEUTROPHILS ABSOLUTE MAN 3.75 K/mm3 (1.96-9.15); SEG NEUTROPHILS PERCENT MAN 89 % (41-73); TOTAL CELLS COUNTED 100
[2023-01-08] MEDS ORDERED: METO25ER PO (12:21)
== END 2023-01-08 11:08 | disposition home or self-care (01) ==
LOC: ATC 01:55
PROVIDERS: Internal Medicine Hematology & Oncology
DX: D46.A Refractory cytopenia with multilineage dysplasia (principal); I25.10 Atherosclerotic heart disease of native coronary artery without angina pectoris; I10 Essential (primary) hypertension; E78.5 Hyperlipidemia, unspecified
CPT/HCPCS: 36591; 85025; J1642

== ENCOUNTER 2023-01-16 07:26 | Day surgery (SDC) | payer OTHER ==
[2023-01-15 11:38] VITALS: BP 107/68
[2023-01-15 12:05] LABS: BASOPHILS ABSOLUTE AUTO 0.09 K/mm3 (0.00-0.23); BASOPHILS PERCENT AUTO 2 % (0-2); EOSINOPHILS ABSOLUTE AUTO 0.12 K/mm3 (0.00-0.68); EOSINOPHILS PERCENT AUTO 2 % (0-6); Hematocrit 19.7 % (37.0-53.0); Hemoglobin 6.4 g/dL (13.5-17.5); IMMATURE GRAN PERCENT AUTO 2 % (0-1); LYMPHOCYTES ABSOLUTE AUTO 0.25 K/mm3 (0.84-5.20); LYMPHOCYTES PERCENT AUTO 5 % (21-46); MONOCYTES ABSOLUTE AUTO 0.13 K/mm3 (0.16-1.47); MONOCYTES PERCENT AUTO 3 % (4-13); Mean Corpuscular HGB Conc 32.5 g/dL (31.5-36.5); Mean Corpuscular Volume 89 fL (80-100); NEUTROPHILS ABSOLUTE AUTO 4.24 K/mm3 (1.96-9.15); NEUTROPHILS PERCENT AUTO 86 % (41-73); Platelet Count 146 K/mm3 (150-400); RDW Coefficient Variation 17.2 % (11.7-14.2); RDW Standard Deviation 53.7 fL (35.1-46.3); Red Blood Cell Count 2.21 M/mm3 (4.30-5.90); White Blood Cell Count 4.93 K/mm3 (4.00-11.30)
[2023-01-15 12:40] LABS: Mean Platelet Volume 13.2 fL (9.1-12.4)
[2023-01-16] VITALS (7 sets, daily range): BP systolic 83–105; BP diastolic 42–69
== END 2023-01-16 12:16 | disposition home or self-care (01) ==
LOC: ATC 07:26
PROVIDERS: Internal Medicine Hematology & Oncology
DX: D46.A Refractory cytopenia with multilineage dysplasia (principal); I25.10 Atherosclerotic heart disease of native coronary artery without angina pectoris; I10 Essential (primary) hypertension; E78.5 Hyperlipidemia, unspecified; M19.90 Unspecified osteoarthritis, unspecified site
CPT/HCPCS: 36430; 36591; 85025; 86850; 86900; 86901; 86923; 96374; J1200; J1642; J7050; P9016

== ENCOUNTER 2023-01-23 03:05 | Day surgery (SDC) | payer OTHER ==
[2023-01-23 10:58] VITALS: BP 103/70
[2023-01-23 11:41] LABS: Hematocrit 25.7 % (37.0-53.0); Hemoglobin 8.2 g/dL (13.5-17.5); Mean Corpuscular HGB 28.5 pg (26.0-34.0); Mean Corpuscular HGB Conc 31.9 g/dL (31.5-36.5); Mean Corpuscular Volume 89 fL (80-100); Platelet Count 175 K/mm3 (150-400); RDW Coefficient Variation 16.8 % (11.7-14.2); RDW Standard Deviation 53.8 fL (35.1-46.3); Red Blood Cell Count 2.88 M/mm3 (4.30-5.90); White Blood Cell Count 5.46 K/mm3 (4.00-11.30)
[2023-01-23 12:42] LABS: BAND PERCENT MAN 5 % (0-8); BASOPHILS ABSOLUTE MAN 0.21 K/mm3 (0.00-0.23); BASOPHILS PERCENT MAN 4 % (0-2); EOSINOPHILS ABSOLUTE MAN 0.05 K/mm3 (0.00-0.68); EOSINOPHILS PERCENT MAN 1 % (0-6); LYMPHOCYTES ABSOLUTE MAN 0.05 K/mm3 (0.84-5.20); LYMPHOCYTES PERCENT MAN 1 % (21-46); MONOCYTES ABSOLUTE MAN 0.16 K/mm3 (0.16-1.47); MONOCYTES PERCENT MAN 3 % (4-13); NEUTROPHILS ABSOLUTE MAN 4.96 K/mm3 (1.96-9.15); SEG NEUTROPHILS PERCENT MAN 86 % (41-73); TOTAL CELLS COUNTED 100
== END 2023-01-23 10:54 | disposition home or self-care (01) ==
LOC: ATC 03:05
PROVIDERS: Internal Medicine Hematology & Oncology
DX: D46.A Refractory cytopenia with multilineage dysplasia (principal); I25.10 Atherosclerotic heart disease of native coronary artery without angina pectoris; I10 Essential (primary) hypertension; E78.5 Hyperlipidemia, unspecified; M19.90 Unspecified osteoarthritis, unspecified site; Z95.1 Presence of aortocoronary bypass graft; Z79.899 Other long term (current) drug therapy; Z88.1 Allergy status to other antibiotic agents
CPT/HCPCS: 36591; 85025; J1642

== ENCOUNTER 2023-02-01 02:49 | Day surgery (SDC) | payer OTHER ==
[2023-01-30 11:02] VITALS: BP 90/59
[2023-01-30 11:14] LABS: BASOPHILS ABSOLUTE AUTO 0.12 K/mm3 (0.00-0.23); BASOPHILS PERCENT AUTO 3 % (0-2); EOSINOPHILS ABSOLUTE AUTO 0.22 K/mm3 (0.00-0.68); EOSINOPHILS PERCENT AUTO 5 % (0-6); Hematocrit 21.4 % (37.0-53.0); Hemoglobin 6.9 g/dL (13.5-17.5); IMMATURE GRAN ABSOLUTE AUTO 0.09 K/mm3 (0.00-0.10); IMMATURE GRAN PERCENT AUTO 2 % (0-1); LYMPHOCYTES ABSOLUTE AUTO 0.49 K/mm3 (0.84-5.20); LYMPHOCYTES PERCENT AUTO 11 % (21-46); MONOCYTES ABSOLUTE AUTO 0.14 K/mm3 (0.16-1.47); MONOCYTES PERCENT AUTO 3 % (4-13); Mean Corpuscular HGB 29.1 pg (26.0-34.0); Mean Corpuscular HGB Conc 32.2 g/dL (31.5-36.5); Mean Corpuscular Volume 90 fL (80-100); Mean Platelet Volume 12.8 fL (9.1-12.4); NEUTROPHILS PERCENT AUTO 77 % (41-73); Platelet Count 195 K/mm3 (150-400); RDW Coefficient Variation 16.5 % (11.7-14.2); RDW Standard Deviation 53.1 fL (35.1-46.3); Red Blood Cell Count 2.37 M/mm3 (4.30-5.90); White Blood Cell Count 4.66 K/mm3 (4.00-11.30)
[2023-02-01] VITALS (7 sets, daily range): BP systolic 87–120; BP diastolic 58–71
--- NOTE | 2023-02-01 11:05 | NUR ---
PT WITH FAINT INSPIRATORY CRACKLES TO LEFT BASE, IMPROVES WITH COUGH.
== END 2023-02-01 11:10 | disposition home or self-care (01) ==
LOC: ATC 02:49
PROVIDERS: Internal Medicine Hematology & Oncology
DX: D46.A Refractory cytopenia with multilineage dysplasia (principal); I25.10 Atherosclerotic heart disease of native coronary artery without angina pectoris; I10 Essential (primary) hypertension; E78.5 Hyperlipidemia, unspecified; M19.90 Unspecified osteoarthritis, unspecified site; Z95.1 Presence of aortocoronary bypass graft; Z79.899 Other long term (current) drug therapy; Z88.1 Allergy status to other antibiotic agents
CPT/HCPCS: 36430; 36591; 85025; 86850; 86900; 86901; 86923; 96374; J1200; J1642; J7050; P9016

== ENCOUNTER 2023-02-06 00:30 | Day surgery (SDC) | payer OTHER ==
[2023-02-06 10:45] VITALS: BP 101/63
[2023-02-06 11:15] LABS: BASOPHILS ABSOLUTE AUTO 0.15 K/mm3 (0.00-0.23); BASOPHILS PERCENT AUTO 3 % (0-2); EOSINOPHILS ABSOLUTE AUTO 0.29 K/mm3 (0.00-0.68); EOSINOPHILS PERCENT AUTO 5 % (0-6); Hematocrit 29.8 % (37.0-53.0); Hemoglobin 9.6 g/dL (13.5-17.5); Mean Corpuscular HGB 29.6 pg (26.0-34.0); Mean Corpuscular HGB Conc 32.2 g/dL (31.5-36.5); Mean Corpuscular Volume 92 fL (80-100); Mean Platelet Volume 12.9 fL (9.1-12.4); Platelet Count 188 K/mm3 (150-400); RDW Coefficient Variation 16.2 % (11.7-14.2); RDW Standard Deviation 53.8 fL (35.1-46.3); Red Blood Cell Count 3.24 M/mm3 (4.30-5.90); White Blood Cell Count 5.46 K/mm3 (4.00-11.30)
[2023-02-06 11:23] LABS: IMMATURE GRAN ABSOLUTE AUTO 0.08 K/mm3 (0.00-0.10); IMMATURE GRAN PERCENT AUTO 2 % (0-1); LYMPHOCYTES ABSOLUTE AUTO 0.52 K/mm3 (0.84-5.20); LYMPHOCYTES PERCENT AUTO 10 % (21-46); MONOCYTES ABSOLUTE AUTO 0.17 K/mm3 (0.16-1.47); MONOCYTES PERCENT AUTO 3 % (4-13); NEUTROPHILS ABSOLUTE AUTO 4.25 K/mm3 (1.96-9.15); NEUTROPHILS PERCENT AUTO 78 % (41-73)
== END 2023-02-06 11:00 | disposition home or self-care (01) ==
LOC: ATC 00:30
PROVIDERS: Internal Medicine Hematology & Oncology
DX: D46.A Refractory cytopenia with multilineage dysplasia (principal); E78.5 Hyperlipidemia, unspecified; I25.10 Atherosclerotic heart disease of native coronary artery without angina pectoris; I10 Essential (primary) hypertension; M19.90 Unspecified osteoarthritis, unspecified site; Z95.1 Presence of aortocoronary bypass graft
CPT/HCPCS: 36591; 85025; J1642

== ENCOUNTER 2023-02-13 01:39 | Day surgery (SDC) | payer OTHER ==
[2023-02-13 15:47] VITALS: BP 106/69
[2023-02-13 16:15] LABS: Hematocrit 25.9 % (37.0-53.0); Hemoglobin 8.4 g/dL (13.5-17.5); Mean Corpuscular HGB 29.9 pg (26.0-34.0); Mean Corpuscular HGB Conc 32.4 g/dL (31.5-36.5); Mean Corpuscular Volume 92 fL (80-100); Platelet Count 190 K/mm3 (150-400); RDW Standard Deviation 53.1 fL (35.1-46.3); Red Blood Cell Count 2.81 M/mm3 (4.30-5.90); White Blood Cell Count 3.77 K/mm3 (4.00-11.30)
[2023-02-13 16:16] LABS: Mean Platelet Volume 13.2 fL (9.1-12.4)
[2023-02-13 17:07] LABS: BASOPHILS ABSOLUTE MAN 0.15 K/mm3 (0.00-0.23); BASOPHILS PERCENT MAN 4 % (0-2); EOSINOPHILS ABSOLUTE MAN 0.03 K/mm3 (0.00-0.68); EOSINOPHILS PERCENT MAN 1 % (0-6); LYMPHOCYTES ABSOLUTE MAN 0.07 K/mm3 (0.84-5.20); LYMPHOCYTES PERCENT MAN 2 % (21-46); MONOCYTES ABSOLUTE MAN 0.03 K/mm3 (0.16-1.47); MONOCYTES PERCENT MAN 1 % (4-13); NEUTROPHILS ABSOLUTE MAN 3.46 K/mm3 (1.96-9.15); SEG NEUTROPHILS PERCENT MAN 92 % (41-73); TOTAL CELLS COUNTED 100
== END 2023-02-13 15:50 | disposition home or self-care (01) ==
LOC: ATC 01:39
PROVIDERS: Internal Medicine Hematology & Oncology
DX: D46.A Refractory cytopenia with multilineage dysplasia (principal); I25.10 Atherosclerotic heart disease of native coronary artery without angina pectoris; I10 Essential (primary) hypertension; E78.5 Hyperlipidemia, unspecified
CPT/HCPCS: 36591; 85025; J1642

== ENCOUNTER 2023-02-21 02:12 | Day surgery (SDC) | payer OTHER ==
[2023-02-20 11:51] VITALS: BP 102/64
[2023-02-20 12:27] LABS: Hematocrit 22.4 % (37.0-53.0); Hemoglobin 7.4 g/dL (13.5-17.5); Mean Corpuscular HGB 30.1 pg (26.0-34.0); Mean Corpuscular Volume 91 fL (80-100); Platelet Count 204 K/mm3 (150-400); RDW Coefficient Variation 16.3 % (11.7-14.2); Red Blood Cell Count 2.46 M/mm3 (4.30-5.90); White Blood Cell Count 4.46 K/mm3 (4.00-11.30)
[2023-02-20 14:29] LABS: Mean Platelet Volume 13.3 fL (9.1-12.4)
[2023-02-20 14:44] LABS: TOTAL CELLS COUNTED 100
[2023-02-20 15:28] LABS: LYMPHOCYTES ABSOLUTE MAN 0.08 K/mm3 (0.84-5.20); LYMPHOCYTES PERCENT MAN 2 % (21-46); MONOCYTES ABSOLUTE MAN 0.08 K/mm3 (0.16-1.47); MONOCYTES PERCENT MAN 2 % (4-13); NEUTROPHILS ABSOLUTE MAN 3.79 K/mm3 (1.96-9.15); SEG NEUTROPHILS PERCENT MAN 84 % (41-73)
[2023-02-20 15:29] LABS: BASOPHILS ABSOLUTE MAN 0.22 K/mm3 (0.00-0.23); BASOPHILS PERCENT MAN 5 % (0-2); EOSINOPHILS ABSOLUTE MAN 0.31 K/mm3 (0.00-0.68); EOSINOPHILS PERCENT MAN 7 % (0-6)
[2023-02-21 08:12] VITALS: BP 108/65
[2023-02-21 08:29] VITALS: BP 91/55
[2023-02-21 09:44] VITALS: BP 101/60
== END 2023-02-21 09:46 | disposition home or self-care (01) ==
LOC: LAB 02:12 → ATC 02:12
PROVIDERS: Internal Medicine Hematology & Oncology
DX: D46.A Refractory cytopenia with multilineage dysplasia (principal); I25.10 Atherosclerotic heart disease of native coronary artery without angina pectoris; I10 Essential (primary) hypertension; E78.5 Hyperlipidemia, unspecified; Z95.1 Presence of aortocoronary bypass graft
CPT/HCPCS: 36430; 36591; 85025; 86850; 86900; 86901; 86923; 96374; J1200; J1642; J7050; P9016

== ENCOUNTER 2023-02-28 01:01 | Day surgery (SDC) | payer OTHER ==
[2023-02-28 11:02] VITALS: BP 93/63
[2023-02-28 11:28] LABS: BASOPHILS ABSOLUTE AUTO 0.11 K/mm3 (0.00-0.23); BASOPHILS PERCENT AUTO 2 % (0-2); EOSINOPHILS ABSOLUTE AUTO 0.21 K/mm3 (0.00-0.68); EOSINOPHILS PERCENT AUTO 5 % (0-6); Hemoglobin 7.7 g/dL (13.5-17.5); IMMATURE GRAN ABSOLUTE AUTO 0.09 K/mm3 (0.00-0.10); IMMATURE GRAN PERCENT AUTO 2 % (0-1); LYMPHOCYTES PERCENT AUTO 11 % (21-46); MONOCYTES ABSOLUTE AUTO 0.15 K/mm3 (0.16-1.47); MONOCYTES PERCENT AUTO 3 % (4-13); Mean Corpuscular HGB 29.5 pg (26.0-34.0); Mean Corpuscular HGB Conc 32.1 g/dL (31.5-36.5); Mean Corpuscular Volume 92 fL (80-100); NEUTROPHILS ABSOLUTE AUTO 3.57 K/mm3 (1.96-9.15); NEUTROPHILS PERCENT AUTO 77 % (41-73); Platelet Count 197 K/mm3 (150-400); RDW Coefficient Variation 15.9 % (11.7-14.2); RDW Standard Deviation 50.9 fL (35.1-46.3); Red Blood Cell Count 2.61 M/mm3 (4.30-5.90); White Blood Cell Count 4.63 K/mm3 (4.00-11.30)
== END 2023-02-28 11:03 | disposition home or self-care (01) ==
LOC: ATC 01:01
PROVIDERS: Internal Medicine Hematology & Oncology
DX: D46.A Refractory cytopenia with multilineage dysplasia (principal); D69.6 Thrombocytopenia, unspecified; K76.0 Fatty (change of) liver, not elsewhere classified
CPT/HCPCS: 36591; 85025; J1642

== ENCOUNTER 2023-03-08 01:55 | Day surgery (SDC) | payer OTHER ==
[2023-03-06 10:40] VITALS: BP 102/71
[2023-03-06 11:07] LABS: Hematocrit 20.2 % (37.0-53.0); Hemoglobin 6.6 g/dL (13.5-17.5); Mean Corpuscular HGB Conc 32.7 g/dL (31.5-36.5); Mean Corpuscular Volume 92 fL (80-100); Platelet Count 175 K/mm3 (150-400); RDW Coefficient Variation 15.9 % (11.7-14.2); RDW Standard Deviation 50.7 fL (35.1-46.3); White Blood Cell Count 3.44 K/mm3 (4.00-11.30)
[2023-03-06 12:03] LABS: BAND PERCENT MAN 1 % (0-8); BASOPHILS ABSOLUTE MAN 0.37 K/mm3 (0.00-0.23); BASOPHILS PERCENT MAN 11 % (0-2); EOSINOPHILS ABSOLUTE MAN 0.34 K/mm3 (0.00-0.68); EOSINOPHILS PERCENT MAN 10 % (0-6); LYMPHOCYTES ABSOLUTE MAN 0.51 K/mm3 (0.84-5.20); LYMPHOCYTES PERCENT MAN 15 % (21-46); MONOCYTES PERCENT MAN 0 % (4-13); MYELOCYTE ABSOLUTE MAN 0.03 K/mm3 (0.00-0.00); MYELOCYTE PERCENT MAN 1 % (0-0); NEUTROPHILS ABSOLUTE MAN 2.16 K/mm3 (1.96-9.15); SEG NEUTROPHILS PERCENT MAN 62 % (41-73); TOTAL CELLS COUNTED 100
[2023-03-08 13:43] VITALS: BP 115/67
[2023-03-08 14:02] VITALS: BP 88/54
[2023-03-08 15:14] VITALS: BP 109/69
[2023-03-08 15:37] VITALS: BP 111/67
[2023-03-08 16:36] VITALS: BP 102/81
[2023-03-08 17:14] VITALS: BP 108/60
== END 2023-03-08 17:22 | disposition home or self-care (01) ==
LOC: ATC 01:55
PROVIDERS: Internal Medicine Hematology & Oncology
DX: D46.A Refractory cytopenia with multilineage dysplasia (principal); I25.10 Atherosclerotic heart disease of native coronary artery without angina pectoris; I10 Essential (primary) hypertension; E78.5 Hyperlipidemia, unspecified; M19.90 Unspecified osteoarthritis, unspecified site; Z95.1 Presence of aortocoronary bypass graft; Z88.1 Allergy status to other antibiotic agents
CPT/HCPCS: 36430; 36591; 85025; 86850; 86900; 86901; 86923; 96374; 96523; J1200; J1642; J7050; P9016

== ENCOUNTER 2023-03-13 02:31 | Day surgery (SDC) | payer OTHER ==
[2023-03-13 11:41] VITALS: BP 102/64
[2023-03-13 12:10] LABS: Hematocrit 28.1 % (37.0-53.0); Hemoglobin 9.2 g/dL (13.5-17.5); Mean Corpuscular HGB 29.9 pg (26.0-34.0); Mean Corpuscular HGB Conc 32.7 g/dL (31.5-36.5); Mean Corpuscular Volume 91 fL (80-100); Platelet Count 153 K/mm3 (150-400); RDW Coefficient Variation 14.9 % (11.7-14.2); RDW Standard Deviation 47.9 fL (35.1-46.3); Red Blood Cell Count 3.08 M/mm3 (4.30-5.90); White Blood Cell Count 4.61 K/mm3 (4.00-11.30)
[2023-03-13 12:31] LABS: BASOPHILS ABSOLUTE MAN 0.18 K/mm3 (0.00-0.23); BASOPHILS PERCENT MAN 4 % (0-2); EOSINOPHILS ABSOLUTE MAN 0.23 K/mm3 (0.00-0.68); EOSINOPHILS PERCENT MAN 5 % (0-6); LYMPHOCYTES ABSOLUTE MAN 0.23 K/mm3 (0.84-5.20); LYMPHOCYTES PERCENT MAN 5 % (21-46); MONOCYTES ABSOLUTE MAN 0.04 K/mm3 (0.16-1.47); MONOCYTES PERCENT MAN 1 % (4-13); NEUTROPHILS ABSOLUTE MAN 3.91 K/mm3 (1.96-9.15); SEG NEUTROPHILS PERCENT MAN 85 % (41-73); TOTAL CELLS COUNTED 100
== END 2023-03-13 22:38 | disposition home or self-care (01) ==
LOC: ATC 02:31
PROVIDERS: Internal Medicine Hematology & Oncology
DX: D46.A Refractory cytopenia with multilineage dysplasia (principal); I25.10 Atherosclerotic heart disease of native coronary artery without angina pectoris; I10 Essential (primary) hypertension; E78.5 Hyperlipidemia, unspecified; M19.90 Unspecified osteoarthritis, unspecified site; Z95.1 Presence of aortocoronary bypass graft
CPT/HCPCS: 36591; 85025; J1642

== ENCOUNTER 2023-03-20 00:25 | Day surgery (SDC) | payer OTHER ==
[2023-03-20 10:44] VITALS: BP 91/58
[2023-03-20 11:08] LABS: Hematocrit 25.4 % (37.0-53.0); Mean Corpuscular HGB 29.4 pg (26.0-34.0); Mean Corpuscular HGB Conc 31.5 g/dL (31.5-36.5); Mean Corpuscular Volume 93 fL (80-100); Platelet Count 114 K/mm3 (150-400); RDW Coefficient Variation 14.8 % (11.7-14.2); RDW Standard Deviation 49.1 fL (35.1-46.3); Red Blood Cell Count 2.72 M/mm3 (4.30-5.90); White Blood Cell Count 4.88 K/mm3 (4.00-11.30)
[2023-03-20 11:27] LABS: BAND PERCENT MAN 2 % (0-8); BASOPHILS PERCENT MAN 0 % (0-2); EOSINOPHILS ABSOLUTE MAN 0.09 K/mm3 (0.00-0.68); EOSINOPHILS PERCENT MAN 2 % (0-6); LYMPHOCYTES ABSOLUTE MAN 0.29 K/mm3 (0.84-5.20); LYMPHOCYTES PERCENT MAN 6 % (21-46); MONOCYTES PERCENT MAN 0 % (4-13); NEUTROPHILS ABSOLUTE MAN 4.48 K/mm3 (1.96-9.15); SEG NEUTROPHILS PERCENT MAN 90 % (41-73); TOTAL CELLS COUNTED 100
== END 2023-03-20 10:46 | disposition home or self-care (01) ==
LOC: ATC 00:25
PROVIDERS: Internal Medicine Hematology & Oncology
DX: D46.A Refractory cytopenia with multilineage dysplasia (principal); I25.10 Atherosclerotic heart disease of native coronary artery without angina pectoris; I10 Essential (primary) hypertension; E78.5 Hyperlipidemia, unspecified; M19.90 Unspecified osteoarthritis, unspecified site; Z95.1 Presence of aortocoronary bypass graft
CPT/HCPCS: 36591; 85025; J1642

== ENCOUNTER 2023-03-29 01:40 | Day surgery (SDC) | payer OTHER ==
[2023-03-28 10:30] VITALS: BP 105/67
[2023-03-28 10:57] LABS: Hematocrit 19.2 % (37.0-53.0); Hemoglobin 6.2 g/dL (13.5-17.5); Mean Corpuscular HGB 29.7 pg (26.0-34.0); Mean Corpuscular HGB Conc 32.3 g/dL (31.5-36.5); Mean Corpuscular Volume 92 fL (80-100); Platelet Count 125 K/mm3 (150-400); RDW Coefficient Variation 14.9 % (11.7-14.2); RDW Standard Deviation 47.8 fL (35.1-46.3); Red Blood Cell Count 2.09 M/mm3 (4.30-5.90); White Blood Cell Count 3.79 K/mm3 (4.00-11.30)
[2023-03-28 11:01] LABS: Mean Platelet Volume 13.5 fL (9.1-12.4)
[2023-03-28 12:22] LABS: BAND PERCENT MAN 3 % (0-8); BASOPHILS ABSOLUTE MAN 0.11 K/mm3 (0.00-0.23); BASOPHILS PERCENT MAN 3 % (0-2); EOSINOPHILS ABSOLUTE MAN 0.15 K/mm3 (0.00-0.68); EOSINOPHILS PERCENT MAN 4 % (0-6); LYMPHOCYTES ABSOLUTE MAN 0.07 K/mm3 (0.84-5.20); LYMPHOCYTES PERCENT MAN 2 % (21-46); MONOCYTES ABSOLUTE MAN 0.03 K/mm3 (0.16-1.47); MONOCYTES PERCENT MAN 1 % (4-13); NEUTROPHILS ABSOLUTE MAN 3.41 K/mm3 (1.96-9.15); SEG NEUTROPHILS PERCENT MAN 87 % (41-73); TOTAL CELLS COUNTED 100
[2023-03-29] MEDS ORDERED: NS 250 ML IV SCH (06:50)
[2023-03-29] MEDS ORDERED: DiphenhydrAMINE HCl 50 MG/ML 1ML Vial IV SCH (06:50)
[2023-03-29 13:45] VITALS: BP 87/59
[2023-03-29 14:04] VITALS: BP 110/60
[2023-03-29 15:13] VITALS: BP 108/58
[2023-03-29 15:38] VITALS: BP 121/69
[2023-03-29 16:53] VITALS: BP 109/58
== END 2023-03-29 17:05 | disposition home or self-care (01) ==
LOC: ATC 01:40
PROVIDERS: Internal Medicine Hematology & Oncology
DX: D46.A Refractory cytopenia with multilineage dysplasia (principal); I25.10 Atherosclerotic heart disease of native coronary artery without angina pectoris; I10 Essential (primary) hypertension; E78.5 Hyperlipidemia, unspecified; R56.9 Unspecified convulsions; D69.6 Thrombocytopenia, unspecified
CPT/HCPCS: 36430; 36591; 85025; 86850; 86900; 86901; 86923; 96374; J1200; J1642; J7050; P9016

== ENCOUNTER 2023-04-04 00:05 | Day surgery (SDC) | payer OTHER ==
[2023-04-04 10:45] VITALS: BP 104/68
[2023-04-04 11:38] LABS: Hematocrit 24.4 % (37.0-53.0); Mean Corpuscular HGB 30.7 pg (26.0-34.0); Mean Corpuscular HGB Conc 32.8 g/dL (31.5-36.5); Mean Corpuscular Volume 94 fL (80-100); Platelet Count 105 K/mm3 (150-400); RDW Coefficient Variation 15.2 % (11.7-14.2); RDW Standard Deviation 51.3 fL (35.1-46.3); Red Blood Cell Count 2.61 M/mm3 (4.30-5.90)
[2023-04-04 11:40] LABS: Mean Platelet Volume 13.9 fL (9.1-12.4)
[2023-04-04 11:59] LABS: BAND PERCENT MAN 4 % (0-8); BASOPHILS ABSOLUTE MAN 0.04 K/mm3 (0.00-0.23); BASOPHILS PERCENT MAN 1 % (0-2); EOSINOPHILS ABSOLUTE MAN 0.08 K/mm3 (0.00-0.68); EOSINOPHILS PERCENT MAN 2 % (0-6); LYMPHOCYTES ABSOLUTE MAN 0.47 K/mm3 (0.84-5.20); LYMPHOCYTES PERCENT MAN 11 % (21-46); MONOCYTES ABSOLUTE MAN 0.04 K/mm3 (0.16-1.47); MONOCYTES PERCENT MAN 1 % (4-13); NEUTROPHILS ABSOLUTE MAN 3.65 K/mm3 (1.96-9.15); SEG NEUTROPHILS PERCENT MAN 81 % (41-73); TOTAL CELLS COUNTED 100
== END 2023-04-04 10:49 | disposition home or self-care (01) ==
LOC: ATC 00:05
PROVIDERS: Internal Medicine Hematology & Oncology
DX: D46.A Refractory cytopenia with multilineage dysplasia (principal); I25.10 Atherosclerotic heart disease of native coronary artery without angina pectoris; I10 Essential (primary) hypertension; E78.5 Hyperlipidemia, unspecified
CPT/HCPCS: 36591; 85025; J1642

== ENCOUNTER 2023-04-13 04:56 | Day surgery (SDC) | payer OTHER ==
[2023-04-11 10:53] VITALS: BP 107/59
[2023-04-11 11:19] LABS: BASOPHILS PERCENT AUTO 2 % (0-2); EOSINOPHILS ABSOLUTE AUTO 0.11 K/mm3 (0.00-0.68); EOSINOPHILS PERCENT AUTO 3 % (0-6); Hematocrit 21.6 % (37.0-53.0); Hemoglobin 6.9 g/dL (13.5-17.5); Mean Corpuscular HGB 29.7 pg (26.0-34.0); Mean Corpuscular HGB Conc 31.9 g/dL (31.5-36.5); Mean Corpuscular Volume 93 fL (80-100); Platelet Count 97 K/mm3 (150-400); RDW Coefficient Variation 15.1 % (11.7-14.2); RDW Standard Deviation 50.5 fL (35.1-46.3); Red Blood Cell Count 2.32 M/mm3 (4.30-5.90); White Blood Cell Count 4.11 K/mm3 (4.00-11.30)
[2023-04-11 11:32] LABS: IMMATURE GRAN ABSOLUTE AUTO 0.16 K/mm3 (0.00-0.10); IMMATURE GRAN PERCENT AUTO 4 % (0-1); LYMPHOCYTES ABSOLUTE AUTO 0.46 K/mm3 (0.84-5.20); LYMPHOCYTES PERCENT AUTO 11 % (21-46); MONOCYTES ABSOLUTE AUTO 0.11 K/mm3 (0.16-1.47); MONOCYTES PERCENT AUTO 3 % (4-13); Mean Platelet Volume 13.6 fL (9.1-12.4); NEUTROPHILS ABSOLUTE AUTO 3.17 K/mm3 (1.96-9.15); NEUTROPHILS PERCENT AUTO 77 % (41-73)
[2023-04-13] VITALS (7 sets, daily range): BP systolic 83–119; BP diastolic 61–77
[2023-04-13] MEDS ORDERED: NS 250 ML IV SCH (06:45)
[2023-04-13] MEDS ORDERED: DiphenhydrAMINE HCl 50 MG/ML 1ML Vial IV SCH (06:45)
== END 2023-04-13 11:27 | disposition home or self-care (01) ==
LOC: ATC 04:56
PROVIDERS: Internal Medicine Hematology & Oncology
DX: D46.A Refractory cytopenia with multilineage dysplasia (principal); I25.10 Atherosclerotic heart disease of native coronary artery without angina pectoris; I10 Essential (primary) hypertension; E78.5 Hyperlipidemia, unspecified; Z88.0 Allergy status to penicillin; Z79.82 Long term (current) use of aspirin; Z79.899 Other long term (current) drug therapy
CPT/HCPCS: 36430; 36591; 85025; 86850; 86900; 86901; 86923; 96374; J1200; J1642; J7050; P9016

== ENCOUNTER 2023-06-08 03:56 | Day surgery (SDC) | payer OTHER ==
[2023-06-06 10:30] VITALS: BP 100/70
[2023-06-06 10:50] LABS: BASOPHILS ABSOLUTE AUTO 0.08 K/mm3 (0.00-0.23); BASOPHILS PERCENT AUTO 3 % (0-2); EOSINOPHILS ABSOLUTE AUTO 0.15 K/mm3 (0.00-0.68); EOSINOPHILS PERCENT AUTO 5 % (0-6); Hematocrit 22.5 % (37.0-53.0); Hemoglobin 7.2 g/dL (13.5-17.5); Mean Corpuscular HGB 29.4 pg (26.0-34.0); Mean Corpuscular Volume 92 fL (80-100); Platelet Count 96 K/mm3 (150-400); RDW Coefficient Variation 15.8 % (11.7-14.2); RDW Standard Deviation 52.3 fL (35.1-46.3); Red Blood Cell Count 2.45 M/mm3 (4.30-5.90); White Blood Cell Count 3.14 K/mm3 (4.00-11.30)
[2023-06-06 10:55] LABS: IMMATURE GRAN ABSOLUTE AUTO 0.08 K/mm3 (0.00-0.10); IMMATURE GRAN PERCENT AUTO 3 % (0-1); LYMPHOCYTES ABSOLUTE AUTO 0.28 K/mm3 (0.84-5.20); LYMPHOCYTES PERCENT AUTO 9 % (21-46); MONOCYTES ABSOLUTE AUTO 0.14 K/mm3 (0.16-1.47); MONOCYTES PERCENT AUTO 5 % (4-13); Mean Platelet Volume 13.4 fL (9.1-12.4); NEUTROPHILS ABSOLUTE AUTO 2.41 K/mm3 (1.96-9.15); NEUTROPHILS PERCENT AUTO 77 % (41-73)
[2023-06-08] VITALS (10 sets, daily range): BP systolic 80–119; BP diastolic 59–87
[2023-06-08] MEDS ORDERED: NS 250 ML IV SCH (06:55)
[2023-06-08] MEDS ORDERED: DiphenhydrAMINE HCl 50 MG/ML 1ML Vial IV SCH (06:55)
--- NOTE | 2023-06-08 10:00 | NUR ---
0945 pt bp low, and temperature increasing, pt is asymptomatic, no dizziness, no visual disterbances, no itchyness, no chills, hr stable. his first bag is complete, rn consulted with nahid huddleston who works this department more, advised to continue and change tubing. infusion of next bag will be slowed down, and he will be monitored closely,
== END 2023-06-08 12:02 | disposition home or self-care (01) ==
LOC: ATC 03:56
PROVIDERS: Internal Medicine Hematology & Oncology
DX: D46.A Refractory cytopenia with multilineage dysplasia (principal); I25.10 Atherosclerotic heart disease of native coronary artery without angina pectoris; I10 Essential (primary) hypertension; E78.5 Hyperlipidemia, unspecified; Z95.1 Presence of aortocoronary bypass graft; Z88.0 Allergy status to penicillin; Z79.899 Other long term (current) drug therapy; D46.9 Myelodysplastic syndrome, unspecified
CPT/HCPCS: 36430; 36591; 85025; 86850; 86900; 86901; 86923; 96374; J1200; J1642; J7050; P9016

== ENCOUNTER 2023-06-12 01:23 | Day surgery (SDC) | payer OTHER ==
[2023-06-12 10:30] VITALS: BP 124/82
[2023-06-12 11:15] LABS: Hematocrit 30.4 % (37.0-53.0); Mean Corpuscular HGB 30.4 pg (26.0-34.0); Mean Corpuscular HGB Conc 32.9 g/dL (31.5-36.5); Mean Corpuscular Volume 92 fL (80-100); Platelet Count 65 K/mm3 (150-400); RDW Coefficient Variation 15.3 % (11.7-14.2); Red Blood Cell Count 3.29 M/mm3 (4.30-5.90); White Blood Cell Count 3.24 K/mm3 (4.00-11.30)
[2023-06-12 11:59] LABS: BAND PERCENT MAN 2 % (0-8); BASOPHILS PERCENT MAN 0 % (0-2); EOSINOPHILS ABSOLUTE MAN 0.06 K/mm3 (0.00-0.68); EOSINOPHILS PERCENT MAN 2 % (0-6); LYMPHOCYTES ABSOLUTE MAN 0.42 K/mm3 (0.84-5.20); LYMPHOCYTES PERCENT MAN 13 % (21-46); MONOCYTES PERCENT MAN 0 % (4-13); NEUTROPHILS ABSOLUTE MAN 2.75 K/mm3 (1.96-9.15); SEG NEUTROPHILS PERCENT MAN 83 % (41-73); TOTAL CELLS COUNTED 100
== END 2023-06-12 10:53 | disposition home or self-care (01) ==
LOC: ATC 01:23
PROVIDERS: Internal Medicine Hematology & Oncology
DX: D46.A Refractory cytopenia with multilineage dysplasia (principal); I25.10 Atherosclerotic heart disease of native coronary artery without angina pectoris; I10 Essential (primary) hypertension; E78.5 Hyperlipidemia, unspecified; Z95.1 Presence of aortocoronary bypass graft
CPT/HCPCS: 36591; 85025; J1642

== ENCOUNTER 2023-06-19 02:36 | Day surgery (SDC) | payer OTHER ==
[2023-06-19 11:44] VITALS: BP 106/77
[2023-06-19 12:10] LABS: Hematocrit 28.4 % (37.0-53.0); Hemoglobin 9.4 g/dL (13.5-17.5); Mean Corpuscular HGB 30.9 pg (26.0-34.0); Mean Corpuscular HGB Conc 33.1 g/dL (31.5-36.5); Mean Corpuscular Volume 93 fL (80-100); Platelet Count 83 K/mm3 (150-400); RDW Coefficient Variation 15.6 % (11.7-14.2); RDW Standard Deviation 53.1 fL (35.1-46.3); Red Blood Cell Count 3.04 M/mm3 (4.30-5.90); White Blood Cell Count 3.69 K/mm3 (4.00-11.30)
[2023-06-19 12:30] LABS: BASOPHILS ABSOLUTE MAN 0.03 K/mm3 (0.00-0.23); BASOPHILS PERCENT MAN 1 % (0-2); EOSINOPHILS ABSOLUTE MAN 0.07 K/mm3 (0.00-0.68); EOSINOPHILS PERCENT MAN 2 % (0-6); LYMPHOCYTES % ATYPICAL MANUAL 1 % (0-0); LYMPHOCYTES ABSOLUTE MAN 0.29 K/mm3 (0.84-5.20); LYMPHOCYTES PERCENT MAN 7 % (21-46); MONOCYTES ABSOLUTE MAN 0.07 K/mm3 (0.16-1.47); MONOCYTES PERCENT MAN 2 % (4-13); NEUTROPHILS ABSOLUTE MAN 3.21 K/mm3 (1.96-9.15); SEG NEUTROPHILS PERCENT MAN 87 % (41-73); TOTAL CELLS COUNTED 100
== END 2023-06-19 11:47 | disposition home or self-care (01) ==
LOC: ATC 02:36
PROVIDERS: Internal Medicine Hematology & Oncology
DX: D46.A Refractory cytopenia with multilineage dysplasia (principal); I25.2 Old myocardial infarction; I10 Essential (primary) hypertension; E78.5 Hyperlipidemia, unspecified
CPT/HCPCS: 36591; 85025; J1642

== ENCOUNTER 2023-06-29 05:03 | Day surgery (SDC) | payer OTHER ==
[2023-06-26 12:13] LABS: Hematocrit 23.6 % (37.0-53.0); Hemoglobin 7.9 g/dL (13.5-17.5); Mean Corpuscular HGB 30.9 pg (26.0-34.0); Mean Corpuscular HGB Conc 33.5 g/dL (31.5-36.5); Mean Corpuscular Volume 92 fL (80-100); Platelet Count 85 K/mm3 (150-400); RDW Coefficient Variation 15.3 % (11.7-14.2); RDW Standard Deviation 51.4 fL (35.1-46.3); Red Blood Cell Count 2.56 M/mm3 (4.30-5.90); White Blood Cell Count 3.76 K/mm3 (4.00-11.30)
[2023-06-26 12:23] LABS: Mean Platelet Volume 14.6 fL (9.1-12.4)
[2023-06-26 15:32] LABS: BASOPHILS ABSOLUTE MAN 0.07 K/mm3 (0.00-0.23); BASOPHILS PERCENT MAN 2 % (0-2); EOSINOPHILS ABSOLUTE MAN 0.37 K/mm3 (0.00-0.68); EOSINOPHILS PERCENT MAN 10 % (0-6); LYMPHOCYTES ABSOLUTE MAN 0.26 K/mm3 (0.84-5.20); LYMPHOCYTES PERCENT MAN 7 % (21-46); MONOCYTES ABSOLUTE MAN 0.07 K/mm3 (0.16-1.47); MONOCYTES PERCENT MAN 2 % (4-13); NEUTROPHILS ABSOLUTE MAN 2.97 K/mm3 (1.96-9.15); SEG NEUTROPHILS PERCENT MAN 79 % (41-73); TOTAL CELLS COUNTED 100
[2023-06-29] MEDS ORDERED: NS 250 ML IV SCH (07:00)
[2023-06-29] MEDS ORDERED: DiphenhydrAMINE HCl 50 MG/ML 1ML Vial IV SCH (07:00)
[2023-06-29 13:35] VITALS: BP 102/69
[2023-06-29 13:56] VITALS: BP 100/64
[2023-06-29 14:58] VITALS: BP 99/64
[2023-06-29 15:30] VITALS: BP 103/65
== END 2023-06-29 15:38 | disposition home or self-care (01) ==
LOC: ATC 05:03
PROVIDERS: Internal Medicine Hematology & Oncology
DX: D46.A Refractory cytopenia with multilineage dysplasia (principal); D64.9 Anemia, unspecified; I25.10 Atherosclerotic heart disease of native coronary artery without angina pectoris; I10 Essential (primary) hypertension; E78.5 Hyperlipidemia, unspecified; Z95.1 Presence of aortocoronary bypass graft; Z79.899 Other long term (current) drug therapy; Z79.891 Long term (current) use of opiate analgesic; Z88.0 Allergy status to penicillin
CPT/HCPCS: 36591; 85025; 86850; 86900; 86901; 86923; J1200; J1642; J7050; P9016